=== PATIENT | female | born 1995 | race African-American/Black ===

== ENCOUNTER 2019-12-14 14:00 | Outpatient (RCR) | payer OTHER, SELFPAY ==
--- NOTE | 2019-12-15 09:02 | BH.SGPN.GN ---
Behaviors/Verbalizations/Mental Status: []Client alert and oriented, casual dress, hygiene tended to. Eye contact fair. Motor activity appropriate. Speech within normal limits. Affect congruent, mood anxious. Thoughts linear, logical, no signs of hallucinations or delusions. Reviewed client?s symptom tracker, pt denies current suicidal thoughts or intention to date. Client Response/Progress/Benefit: []Pt responded well to session AEB pt listening attentively to peers and sharing thoughts and feelings. Pt reported she has been stressed a lot this week because is on FMLA due to not being able to function at baseline. Pt stated she has been experiencing a lot of what if thoughts in regards to being fired or reprimanded when she returns to work. Pt open to feedback about trying to look at evidence against these thoughts. Seemed to benefit from support from peers and expressing thoughts and feelings. First day in group. Pt to continue IOP to increase healthy coping, challenge distorted thoughts and prevent decompensation. Narrative Note: []
--- NOTE | 2019-12-15 10:19 | BH.NA ---
Physical Data - Height/Weight Height: 1.75 m Weight:: 83.915 kg Weight in Pounds: 185.0 lbs Current Medication Compliance - Medication Compliance Do you take your medication as prescribed?: Yes Nutritional History - Appetite Nutritional Instructions:: If client shows signs of a swallowing problem, weight change of 10 pounds or more in the last month, or is on a diabetic diet, the physician will review and request a dietitian consult, as appropriate. All unintentional weight loss will be referred to the physician for decision on need for dietitian consult. Describe your appetite:: Good Functional Assessment - Sleep Pattern Describe any problems with sleeping: Client states she sleeps 7-8 hours per night. Sensory/Communication Assess - Communication Problems Do you have difficulty understanding what people are saying?: No What is your primary language?: B[place] Medical Problems/History - Musculoskeletal Conditions Musculoskeletal: Other (See comments) Comments:: fibromyalgia- diagnosed in the last few months. Surgical History - Surgical History Have you had any surgeries? If so, list type and date:: Yes - adenoids removed, ACL repair, wisdom teeth removed Substance Abuse - Substance Abuse Please describe substance abuse in the last 30 days:: Client states she drinks alcohol a couple of times a week, 1-2 drinks. Client denies tobacco or substance use. Client states she does not drink caffiene on a regular basis. Mental Status Summary - Mental Status Significant Findings/Observations on Appearance and Mood:: Assessment was complete via telehealth with video due to COVID19 pandemic. Client is alert and oriented x 4. Client is casually groomed. Client makes good eye contact as what can be assessed via video. Client makes logical associations. Client describes auditory hallucinations that are coupled with her obsessive thoughts as ways she could hurt herself or others. Client states they are things she knows she is capable of but does not want to do. Client states she does at times have passive thoughts of , like I would be better off not here but denies SI/plan. Suicide Assessment - Suicidal Ideation Are you currently or have you been suicidal in the past?: No - denies SI at this time, states she has passive thoughts at times Suicidal Intentional Rating Scale (SIRS): Suicidal thoughts (past) Physician Notification: If Active suicidal thoughts/Will not contract for safety is checked, contact physician and document in the Physician Notification section below. Past Psychiatric History - MH Treatment Hx Age of first mental health symptoms: Client states she told her PCP about obsessive thoughts and intrusive thoughts only about 4 months ago, but states her mental health symptoms have been going on much longer. Describe (age, circumstance, etc) any past hospitalizations: None. Current providers for mental health treatment (counselor, psychiatrist, casework manager, etc.): therapy through [facility] (virtual) and professor of psychology at [facility]. Fall Risk Assessment - Age Age: Less than 60 - Mental Status Mental Status: Willing & able to ask for assistance when needed - Physical Status Physical Status: No problems - Impairments Impairments: None - Elimination Elimination: Continent AND independent - Gait or Balance Gait or Balance: Walks independently - Hx of Falls History of falls in the past 6 months: No known history - Medications/Substances Psychotropics:: Antidepressants, Antipsychotics Medications/substances used within the past 24 hours or ordered to administer: 1-2 of the medications/substances listed above - Total Score Total Points:: 1 RN Summary of Impressions - Impressions Recommendations: Include psychiatric and medical issues, treatment planning recommendations, and discharge planning needs. Impressions: Psychiatric Issues: major depressive disorder, recurrent, severe, with psychotic features. Generalized anxiety disorder. OCD. - Level of Care How do the client's current symptoms and functional deficits support need for this level of care?: Client reports feeling symptoms of depression, anxiety, and OCD for a really long time but only admitting it to her PCP in the last few months because she couldn't handle it on my own anymore and knew I needed help. Client reports feelings of decreased energy, decreased motivation, anhedonia, ruminations, and intrusive thoughts. Client states the intrusive thoughts are obsessions about hurting herself or others. Client states the thoughts are things she knows she is capable of doing but does not want to do. Client states she has passive thoughts of like I would be better off not here but denies SI/plan. IOP will promote gains and prevent further decompensation while providing social support and skills training.
--- NOTE | 2019-12-15 12:01 | BH.MDN_ITS ---
Multi-Disciplinary Note - Note 45-min Individual Time Started:: 13:00 Date: 12/14/19 Purpose of session/treatment goals addressed:: Purpose of session was to build rapport, gather background information, and start process of identifying treatment goals for IOP. Eye Contact:: Good Motor Activity:: Appropriate Appearance:: Casual Speech:: Appropriate Mood:: Anxious, Dysthymic Affect:: Congruent Thoughts:: Linear, Logical, No evidence of hallucinations/delusions noted Staff Interventions:: Therapist used open ended questions to elicit current symptoms and stressors. Actively listened and validated emotions to build rapport. worked collaboratiely with pt to start identifying treatment goals for IOP. Client Response:: Pt responded well to session AEB pt openly sharing thoughts and feelings. Pt stated she sought additional mental health help when she recognized she was not functioning at her best at work and home. Pt stated she was not completing some of her work and was making little mistakes with documentation. Pt stated her intrusive thought of worrying her neices are bieng hurt impacts ability to concentrate. Pt reported she started to decline about two months ago. Pt endorsed low energy, no motivation, anhedonia, oversleeping, worthlessness, restlessness, and racing thoughts. Pt reported she wants to learn healthy coping skills to manage her depressiona and intrusive thoughts. Pt stated her current coping skill is avoidance which she recognizes doesn't work. Pt willing to read material e-mailed to pt about intrusive thoughts. Risks/Concerns:: denies current suicidal thoughts, ideation, and plan. Progress Toward Goals/Plan:: No progress noted given it is first week in IOP program. Pt to continue IOP to increse helahty coping, decrease anxious symptoms , improve daily functioning so pt can return work and prevent decompensation. Time Stopped:: 13:45
--- NOTE | 2019-12-15 12:03 | PCM.BH.PSYEV ---
Psychiatric Evaluation - Initial Evaluation Initial Evaluation: History of Present Illness: [] Patient is a 30-year-old single -[place] female who was referred to the [facility] behavioral health IOP program by her psychiatrist due to her increasing symptoms of depression and anxiety and her inability to function at work due to these worsening symptoms. Patient states that her quality of work as really decreased due to her worsening mental health symptoms. She is currently on FMLA due to being unable to function at work. She lives with her boyfriend of 3 years by themselves. 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 The patient's biggest stress currently is not being able to work. She endorses feeling a depressed mood and sadness. She endorses hopelessness and worthlessness. She lacks motivation and has low energy. She is enjoying some video she sees on [employer] but not much enjoyment in anything else lately. Her appetite is okay overall. Her sleep is about 7 to 8 hours a night. She has low energy during the day and her concentration is very decreased. She feels guilty and she admits to passive thoughts that she would not care if she . In addition she has passive, fleeting suicidal ideation but denies any active suicidal ideation and denies having any plan for suicide. She denies homicidal ideation. She has had some auditory hallucinations for the past few weeks but these have decreased since she started Seroquel 1 week ago. She is at times hears a cell phone ringing when it is not or she hears voices coming from the television when the television is off. She also feels that she is a little paranoid that the people that were closely with her think negatively are saying negative things about her. She denies any other hallucinations or delusions. She denies any symptoms of juan david ever. She also has a history of intrusive, obsessive thoughts. These thoughts are of hurting herself and others at times but they are very ego dystonic and she would never act on them. She also has bizarre thoughts like if she walks by a razor blade that maybe she should swallow the razor blade. She describes her self as a worrier by nature. She is having panic attacks about once a month. She denies having any rituals with her obsessions. She denies any history of self-harm, eating disorder, trauma or PTSD currently. Current Psychiatric Medications: [] Prozac 40 mg p.o. daily (x4 weeks, on this dose for 1 week); Seroquel 100 mg p.o. nightly (x1 week), 50 mg started 2 weeks ago. Past Psychiatric History: [] No psych admits ever. No suicide attempts. She currently has an outpatient counselor and a psych med provider. She first took meds for psychiatric reasons at age 23 about 1 year ago. She had counseling in college and she has her current counselor that she sees every 2 weeks for about 3 months and this has been helpful. She has been on a few meds in the past besides what she is on now but she does not remember their names. Substance Use History: [] She is a non-smoker of cigarettes. Denies any marijuana use. She used to use marijuana rarely in the past but has not used any since several years ago. She drinks 1-2 beers a few nights a week but has never had any blackouts or has ever had a problem with alcohol. She denies any other drug use whatsoever. No rehab ever. Allergies: [] No known allergies Medications: [] She is on the psych meds mentioned in the below the present illness and she is also on topiramate 50 mg nightly for migraine headaches (on this for several months). She denies any side effects from this medication. Past Medical History: [] Migraine headaches, knee ACL surgery, tonsil out and adenoidectomy, wisdom teeth extraction. She is a 0 para 0 female with regular menstrual periods. She uses condoms for control. Family Psychiatric History: [] Mother is healthy and 55 years old and her father is 55 6 years old and healthy. No family history of mental illness or mental illness issues known. She had a paternal aunt with alcoholism but no other substance problems in the family. No completed suicides in the family. Personal/Social History: [] Patient was born and raised in [place] and moved to [place] when she went to [employer] for college. She describes her childhood as pleasant. Her parents were and are and they were both loving. The patient is a middle child and has 2 older sisters, one younger sister and 1 younger brother. She gets along with her siblings but is not real close to them. She denies any verbal, physical or sexual abuse ever. School was good for her growing up and she graduated high school. She went to college at [employer] and got a BS in forensic psychology and is currently working on a masters. She has never had any serious boyfriends except for maybe the current boyfriend of 3 years who she lives with. There of note has never been abuse from her boyfriend. Legal History: [] No arrests. No DUIs. 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 Review of Systems: [] Negative except as noted in present illness. Vital Signs: [] We will review in nurse's notes. Mental Status Examination: [] Patient is seen by telehealth and is not wearing a mask. She appears normal for stated age and is casually dressed and groomed with good hygiene. She has no psychomotor agitation or retardation. She is cooperative and pleasant during the interview. Eye contact is good and speech is normal rate and rhythm and fluent with no pressure. Mood is depressed and affect is constricted to normal. Thought process is goal-directed and organized. Thought content: There is evidence of fleeting passive suicidal ideation and passive thoughts of . No evidence of active suicidal ideation or homicidal ideation. She does say she had auditory hallucinations with voices coming from the TV but these have improved a lot since starting Seroquel several weeks ago. Reality testing is intact. Intelligence is above average. Judgment is intact. Insight: Some present. Impulsivity: Low to moderate. Diagnoses: [] [place] I: [] Major depressive disorder, recurrent, severe, with psychotic features; generalized anxiety disorder; OCD [place] II: [] Deferred [place] III: [] Migraine headaches [place] IV: [] Work and job issues. Plan: [] Patient will start the IOP program at [facility] as the structure, support, education, individual and group therapy will hopefully prevent worsening of the patient's symptoms that might require hospitalization. She felt safe during the interview and if at any time she does not feel safe she will let us know or go to the emergency room. The risks, options, possible side effects and complications were discussed of the medications were discussed with the patient and she understands and accepts these. No medication changes were made at this time as her doses of Seroquel and Prozac were changed within a week ago. She will continue to follow-up with her outpatient psychiatric and medical providers.
--- NOTE | 2019-12-15 12:15 | BH.PSY.EVA_ITS ---
Initial Treatment Plan - Patient Information Visit Information: ADMISSION DATE: EXPECTED LOS: 4-6 weeks - Problems/Symptoms Problem #1:: Depression Symptom:: sadness, hopelessness, worthlessness, anhedonia, decreased concentrat ion, passive suicidal ideation, passive thoughts of Problem #2:: Anxiety Symptom:: Rumination, intrusive obsessive thoughts, panic attacks
--- NOTE | 2019-12-16 09:05 | BH.SGPN.GN ---
This psychotherapy group was provided via telehealth using two-way, real-time interactive telecommunication technology between the patients and the provider. The interactive telecommunication technology included audio and video. The patient was offered telemedicine as an option for care delivery during the COVID-19 pandemic and consented to this option. Patient location: [place] Provider located at [facility] Behaviors/Verbalizations/Mental Status: []Client alert and oriented, casual dress, hygiene tended to. Eye contact fair. Motor activity appropriate. Speech within normal limits. Affect constricted, mood anxious and dysthymic. Thoughts linear, logical, no signs of hallucinations or delusions. Reviewed client?s symptom tracker, pt denies current suicidal thoughts or intention to date. Client Response/Progress/Benefit: []Client responded well to session, attentive and providing supportive statements. Client reports feeling low and anxious this morning. Client shared she is struggling with managing negative thinking related to being off of work. Client stated she has not yet told her family that client is off work to improve her mental health, but client plans to do this tonight. Client shared belief her family will respond well, but client is still anxious. Client stated she has been practicing grounding and positive self-talk to manage her anxiety. Appeared to benefit from connecting with group and reframing distortions in the moment. Will continue IOP tx to prevent decompensation, improve work related functioning, and reduce negative thinking. Narrative Note: []
--- NOTE | 2019-12-16 10:20 | BH.SGPN.GN ---
This psychotherapy group was provided via telehealth using two-way, real-time interactive telecommunication technology between the patients and the provider. The interactive telecommunication technology included audio and video. The patient was offered telemedicine as an option for care delivery during the COVID-19 pandemic and consented to this option. Patient location: [place] Provider located at [facility] Behaviors/Verbalizations/Mental Status: []Client alert and oriented, casually dressed. Eye contact good. Motor activity appropriate. Speech within normal limits. Affect congruent, mood euthymic. Thoughts linear, logical, no signs of hallucinations or delusions. Client Response/Progress/Benefit: []Client responded well to group and actively engaged throughout the session. Client provided input as the group brainstormed positive and negative aspects of stress on physical and mental health. Group identified positive stress as: motivation, reflection of personal growth, learning to apply new coping skills, increased confidence, increased self-awareness, and maintaining personal goals. Client identified the stress in her jar included: finances, gradschool, mental health, work, chores around the house, and family. Progress noted as client increased self-awareness and learned the importance of healthy stress. Client will continue IOP tx as client continues to struggle with mood instability and can improve self-confidence. Narrative Note: []
--- NOTE | 2019-12-16 11:23 | BH.SGPN.GN ---
This psychotherapy group was provided via telehealth using two-way, real-time interactive telecommunication technology between the patients and the provider. The interactive telecommunication technology included audio and video. The patient was offered telemedicine as an option for care delivery during the COVID-19 pandemic and consented to this option. Patient location: [place] Provider located at [facility] Behaviors/Verbalizations/Mental Status: []Client alert and oriented, casually dressed and groomed. Eye contact good. Motor activity appropriate. Speech within normal limits. Affect congruent, mood depressed and anxious. Thoughts linear, logical, no signs of hallucinations or delusions. Client Response/Progress/Benefit: []Client engaged participant in session AEB client listening attentively to others, taking notes during session, and providing input throughout. Client actively listening during discussion about the 4 A's of managing stress. Noted that she has struggled with acceptance in the past, specifically regarding her mental health and unrealistic expectations of herself. Identified she wants to work on managing the stressor of a situation occurring between she and a professor earlier this year, shared that this will help to improve her concentration in class and reduce anxiety levels. Discussed that by adapting her mindset and accepting that she has done everything within her power to best address the stressor, she will be able to focus on other things and spend less time ruminating on what it outside her control. Client seemed to benefit from increased awareness of the impact of stress on mental health and increasing repertoire of stress management strategies. Progress noted in increased insight and participation. Will continue IOP tx to promote use of healthy coping skills, improve mood management, as well as prevent decompensation. Narrative Note: []
--- NOTE | 2019-12-17 09:00 | BH.SGPN.GN ---
This psychotherapy group was provided via telehealth using two-way, real-time interactive telecommunication technology between the patients and the provider. The interactive telecommunication technology included audio and video. The patient was offered telemedicine as an option for care delivery during the COVID-19 pandemic and consented to this option. Patient location: [place] Provider located at [facility] Behaviors/Verbalizations/Mental Status: []Client alert and oriented, casually dressed. Eye contact good. Motor activity appropriate. Speech within normal limits. Affect congruent, mood low. Thoughts linear, logical, no signs of hallucinations or delusions. Reviewed client?s symptom tracker, risk for suicidal ideation below client?s baseline. No plan or intent plan, or intent as of 12/17/19. Client Response/Progress/Benefit: []Client responded well to session and engaged and provided feedback to other group members. Client?s goal was to talk to her family about her involvement in IOP and being off work. Client stated she was unable to speak to supports because of feeling exhausted after group. Client felt guilty that she avoided the conversation until it was too late in the evening and feels she is ?taking 2 steps forward, 4 steps back.? Client stated she felt ?useless from not working.? The group helped client identify her strengths and client identified three personal strengths being: recognizing the importance of taking time off, waking up everyday on time to participate in IOP, and remaining positive through the stressors. Progress noted as client increased self-awareness. Client will continue IOP to prevent decompensation and decrease depressive symptoms. Narrative Note: []
--- NOTE | 2019-12-17 10:10 | BH.SGPN.GN ---
This psychotherapy group was provided via telehealth using two-way, real-time interactive telecommunication technology between the patients and the provider. The interactive telecommunication technology included audio and video. The patient was offered telemedicine as an option for care delivery during the COVID-19 pandemic and consented to this option. Patient location: [place] Provider located at [facility] Behaviors/Verbalizations/Mental Status: []Client alert and oriented, casual dress, hygiene tended to. Eye contact fair. Motor activity appropriate. Speech within normal limits. Affect congruent, mood anxious. Thoughts linear, logical, no signs of hallucinations or delusions. Client Response/Progress/Benefit: []Client responded well to session, attentive throughout. Listening and participating throughout group discussion defining conflict and the differences between internal and external conflict. Client related the group?s quote and stated ?war is the opposite of peace, and in order to have peace? you must be creative.? Group reported the benefits of addressing conflict as well as identified and discussed consequences of not addressing conflict. Client reported the consequences she encounters by not addressing conflict would be increased anxiety and crisis. Client attentive and contributing during psychoeducation of the different conflict resolution styles. Client reports her conflict styles are avoiding and accommodating because client does not like to hurt others? feelings. Client benefited from group as she learned new conflict resolution styles and the benefits. Client will continue IOP to decrease depressive symptoms and prevent decompensation. Narrative Note: []
--- NOTE | 2019-12-17 11:10 | BH.SGPN.GN ---
This psychotherapy group was provided via telehealth using two-way, real-time interactive telecommunication technology between the patients and the provider.?The interactive telecommunication technology included audio and video.? ?The patient was offered telemedicine as an option for care delivery during the COVID-19 pandemic and consented to this option. ?Patient location: [place] ?Provider located at [facility] Behaviors/Verbalizations/Mental Status: []Client alert and oriented, neatly dressed and groomed. Eye contact good. Motor activity appropriate. Speech within normal limits. Affect congruent to topics being discussed, mood anxious and dysthymic. Thoughts linear, logical, no signs of hallucinations or delusions. Client Response/Progress/Benefit: []Client engaged in session AEB listening attentively to others and providing input throughout. Client further processed her conflict resolution style and connects most with the avoiding and accommodating styles. Client reports she avoids internal conflict and accommodates when faced with external conflict. Client shared this leads to client not taking care of her needs which increases depression and anxiety. Client did well to participate during the activity in which participants were challenged to eliminate various items through group consensus. Client contributed to discussion of the barriers that occurred during the activity as well as the conflict resolution strategies. Client identified wanting to work on not jumping to conclusions and assuming ?that others won?t value my opinion? to better manage conflict. Progress noted in client?s high engagement in group sessions. Will continue IOP tx to prevent decompensation, reduce guilt and ruminations, and improve daily functioning. Narrative Note: []
--- NOTE | 2019-12-20 09:05 | BH.SGPN.GN ---
This psychotherapy group was provided via telehealth using two-way, real-time interactive telecommunication technology between the patients and the provider. The interactive telecommunication technology included audio and video. The patient was offered telemedicine as an option for care delivery during the COVID-19 pandemic and consented to this option. Patient location: [place] Provider located at [facility] Behaviors/Verbalizations/Mental Status: []Client alert and oriented, casually dressed. Eye contact good. Motor activity appropriate. Speech within normal limits. Affect congruent, mood dysthymic. Thoughts linear, logical, no signs of hallucinations or delusions. Reviewed client?s symptom tracker, risk for suicidal ideation below client?s baseline. No plan or intent plan, or intent as of 12/20/19. Client Response/Progress/Benefit: []Client responded well to group as she actively participated and engaged throughout the session. Client?s goal was to have self-compassion for taking time away from work as well as tell her family about being involved in IOP. Client shared that she was able to have a healthy conversation with her parents about IOP as they were supportive and positive about her decision. Client shared she did not communicate with her sisters yet, but plans to within the week. Client stated feeling increased confidence and less tense in result of the conversation with her parents. Client practiced communication skills, reaching out to support, and reframing negative thoughts. Client shared feeling positive, tired, hopeful, and less anxious today. Progress noted as client opened up to support about stressors and will continue IOP to decrease depressive symptoms, and improve daily functioning. Narrative Note: []
--- NOTE | 2019-12-20 10:15 | BH.SGPN.GN ---
This psychotherapy group was provided via telehealth using two-way, real-time interactive telecommunication technology between the patients and the provider. The interactive telecommunication technology included audio and video. The patient was offered telemedicine as an option for care delivery during the COVID-19 pandemic and consented to this option. Patient location: [place] Provider located at [facility] Behaviors/Verbalizations/Mental Status: []Client alert and oriented, casually dressed. Eye contact good. Motor activity appropriate. Speech within normal limits. Affect congruent, mood anxious. Thoughts linear, logical, no signs of hallucinations or delusions. Client Response/Progress/Benefit: []Client engaged throughout session AEB providing input to discussion and providing supportive statements. Connected with discussion on how coping with external crises by using unhealthy coping skills could result in a personal crisis. Group reported that it is important to have awareness of warning signs which can prevent reaching crisis point. Group identified warning signs for crisis and client completed the personal warning signs worksheet. Client identified personal crisis warning signs to include: lack of energy, increased sleep, and increased negative self-talk. Benefited by increasing awareness of crisis and personal warning signs. Progress noted AEB client?s engagement during group sessions. Will continue IOP tx to prevent decompensation, increase application of healthy coping skills, and improve mood stability. Narrative Note: []
--- NOTE | 2019-12-20 11:15 | BH.SGPN.GN ---
This psychotherapy group was provided via telehealth using two-way, real-time interactive telecommunication technology between the patients and the provider. The interactive telecommunication technology included audio and video. The patient was offered telemedicine as an option for care delivery during the COVID-19 pandemic and consented to this option. Patient location: [place] Provider located at [facility] Behaviors/Verbalizations/Mental Status: []Client alert and oriented, casually dressed, hygiene appeared to be tended to. Eye contact good. Motor activity appropriate. Speech within normal limits. Affect congruent, mood euthymic. Thoughts linear, logical, no signs of hallucinations or delusions Client Response/Progress/Benefit: []Client responded well to session as evidenced by client listening attentively to others and providing strategies during discussion. Client used the warning signs: increased sleep, decreased energy, and increased negative self-talk to create her crisis plan. Client created a crisis action plan to help client better manage warning signs for crisis. Client shared for the warning sign of sleep she will go to bed by 11pm every night, set an alarm to wake up at the same time every day, and cut out mid-day naps. Client appeared to benefit from creating a crisis action plan and increasing self-awareness. Client to continue IOP tx to improve daily functioning, increase healthy coping, and prevent decompensation. Narrative Note: []
--- NOTE | 2019-12-22 09:05 | BH.SGPN.GN ---
This psychotherapy group was provided via telehealth using two-way, real-time interactive telecommunication technology between the patients and the provider. The interactive telecommunication technology included audio and video. The patient was offered telemedicine as an option for care delivery during the COVID-19 pandemic and consented to this option. Patient location: [place] Provider located at [facility] Behaviors/Verbalizations/Mental Status: [] Client alert and oriented, casually dressed and groomed. Eye contact good. Motor activity appropriate. Speech within normal limits. Affect congruent, mood anxious. Thoughts linear, logical, no signs of hallucinations or delusions. Reviewed client?s symptom tracker, no risk for suicidal ideation, plan, or intent as of 12/22/19. Client Response/Progress/Benefit: [] Pt responded well to session, actively listening throughout and openly processed with group. Pt reports feeling anxious this morning. Indicated this is due to recently running into an old friend whom she had set boundaries with as the relationship had become toxic. Discussed struggling with guilt about ending the friendship and wondering if she should reach back out to this individual. Pt receptive of feedback and support provided by the group. Able to complete a cost/benefit analysis of reaching out. Client indicates planning to reflect further on this before making any decisions. Went on to identify current positives as reaching out to healthy supports when needed and continuing to actively practice thought challenging skills throughout the day. Pt appeared to benefit from connecting with peers and brainstorming strategies for addressing current stressors. Progress noted in pt self-identified increased use of thought challenging and self-compassion, though continues to struggle with distortions reinforcing anxiety and depression. Pt recommended continued IOP tx to further improve emotion regulation, thought challenging, and self-care skills, as well as maintain stability. Narrative Note: []
--- NOTE | 2019-12-22 16:22 | BH.MDN ---
Multi-Disciplinary Note - Note 45-min Individual Time Started:: 11:20 Date: 12/22/19 Purpose of session/treatment goals addressed:: Purpose of session was to assess pt's current symptoms and stressors. Reviewed skills that help manage her anxiety, problem solve current stressor, and identify goal for the week. Eye Contact:: Good Motor Activity:: Appropriate Appearance:: Casual Speech:: Appropriate Mood:: Anxious Affect:: Congruent Thoughts:: Linear, Logical, No evidence of hallucinations/delusions noted Staff Interventions:: Therapist used open ended questions to elicit pt's current symptoms and stressors. Elicited skills that currently help manage anxiety and hallucinations. Encouraged pt to read the material provided about intrusive thoughts. Processed friendship stressor. Collaborated with pt to identify goal for the week. Client Response:: Pt stated she has been struggling with having guilt because she is off work. Pt reported she feels like she isn't contributing which increases her guilt. With assitance from therapist pt able to reframe distorted thought. Pt recognizes importance of taking time off to help herself. Ptstated she did not complete the homework of reading about intrusive thoughts. Pt did not provide a reason as to why she didn't do her homework. Pt stated using reality grounding is what helps her the most with anxiety and psychosis. Pt reported she using the 5 senses helps put her back into the here and now. Pt stated she is better at using reality grounding for visual hallucinations, struggles with managing auditory hallucinations at times. Pt reported she did share with her family that she is going to counseling. Pt stated this was a big step for her because her family doesn't usually talk about mental health or about needing help from others. Pt reported she is happy she was honest with them becasue they are all being very supportive. Pt processed stressor about what to do with a friendship. Through discussion pt recognizes she wants to make one contact and if things work out thats great, but if not at least she knows she tried. Pt collaborated with therapist to identify a goal for the week. Pt stated she believes she needs a routine/schedule since she is not at work. Pt reported she thinks a schedule will help because it will motivate her to do more around the house. Risks/Concerns:: denies suicidal ideation, plan or intention to date. future focused. Progress Toward Goals/Plan:: Progress noted with pt having increased awareness of how her behavior can increase depressive symptoms. Increased insight and awareness of triggers. Pt continues to struggle with harm intrusive thoughts. Pt's progress could be hindered if pt doesn't do the homework outside treatment environment. Pt to continue IOP to increase consistent use of healthy coping, decrease anxiety and prevent decompensation. Time Stopped:: 12:09
--- NOTE | 2019-12-24 09:00 | BH.SGPN.GN ---
Behaviors/Verbalizations/Mental Status: [] Eye contact is good. Motor activity is appropriate. Appearance is disheveled. Speech is Appropriate. Mood is depressed. Affect is flat. Thoughts are linear and logical. No evidence of psychosis. Reviewed daily check in sheet and no reports of suicidal ideations or intent Client Response/Progress/Benefit: [] Pt was an active participant in group discussion. Provided appropriate feedback to peers. Shared with the group that she is taking group suggestions and attempting to be more useful at home in her eyes. Helped out her BF with patio and doing small things around the house. More engaged with support. Improved mood. She discussed running into an old friend whom was toxic. She discussed how she was assertive in the conversation and that the friend responded well. She hopes they can work on their relationship. Progress noted per pt report. Will continue in IOP to maintain safety, prevent decompensation, and improve functioning to return to work. Narrative Note: [] This psychotherapy group was provided via telehealth using two-way, real-time interactive telecommunication technology between the patients and the provider.?The interactive telecommunication technology included audio and video.? ?The patient was offered telemedicine as an option for care delivery during the COVID-19 pandemic and consented to this option. ?Patient location: [place] ?Provider located at [facility]
--- NOTE | 2019-12-24 10:20 | BH.SGPN.GN ---
This psychotherapy group was provided via telehealth using two-way, real-time interactive telecommunication technology between the patients and the provider.?The interactive telecommunication technology included audio and video.? ?The patient was offered telemedicine as an option for care delivery during the COVID-19 pandemic and consented to this option. ?Patient location: [place] ?Provider located at [facility] Behaviors/Verbalizations/Mental Status: []Client alert and oriented, neatly dressed and groomed. Eye contact good. Motor activity appropriate. Speech within normal limits. Affect congruent, mood euthymic and anxious. Thoughts linear, logical, no signs of hallucinations or delusions. Client Response/Progress/Benefit: []Client was an active participant AEB client providing input throughout discussion and attentively listening to peers. Client connected with how having a negative perspective can keep you stuck, prevent a person from getting help, and cause worsening mental health symptoms. Client stated feeling cognitive dissonance about getting mental health tx, because client was raised with the perspective that mental health was negative. Client worked with group to identify how negative perspective can impact mental health which included: self-fulfilling prophecy, worse mood, and negative thinking.?Client helped group discuss ways a positive perspective can impact mental health such as: seeking treatment, challenging distortions, and improved mood. Client appeared to benefit from increasing understanding of mental health benefits of a positive perspective and potential consequences to progress when perspective is negative. Client will continue IOP tx to reduce anxiety and depressive symptoms while increasing ability to function at her baseline. Narrative Note: []
--- NOTE | 2019-12-24 11:20 | BH.SGPN.GN ---
Behaviors/Verbalizations/Mental Status: [] Eye contact is good. Motor activity is appropriate. Appearance is neat. Speech is Appropriate. Mood is anxious. Affect is congruent. Thoughts are linear and logical. No evidence of psychosis. Client Response/Progress/Benefit: [] Pt was an active participant in group discussion. Attentive during psycho-education. Active participant in group discussion on the impact of perspective on how we view ourselves. Pt worked with the group to develop a working definition of the term strengths and the importance of recognizing one's strengths. Pt was given a worksheet and was asked to [place] at least 3 strengths which she completed. Group then worked together to identify strategies to remind themselves of their strengths which included; picking one strength per day, asking support to tell us one of our strengths, track our accomplishments, daily affirmations, and creating a gratitude journal. Progress noted. Benefited from increased awareness of the role of perspective and strengths in daily mental health wellness. Will continue in IOP to maintain safety, prevent decompensation, and improve functioning to return to work. Narrative Note: [] This psychotherapy group was provided via telehealth using two-way, real-time interactive telecommunication technology between the patients and the provider.?The interactive telecommunication technology included audio and video.? ?The patient was offered telemedicine as an option for care delivery during the COVID-19 pandemic and consented to this option. ?Patient location: [place] ?Provider located at [facility]
--- NOTE | 2019-12-28 09:04 | BH.SGPN.GN ---
This psychotherapy group was provided via telehealth using two-way, real-time interactive telecommunication technology between the patients and the provider.?The interactive telecommunication technology included audio and video.? ?The patient was offered telemedicine as an option for care delivery during the COVID-19 pandemic and consented to this option. ?Patient location: [place] ?Provider located at [facility] Behaviors/Verbalizations/Mental Status: [] Client alert and oriented, casually dressed and groomed. Eye contact good. Motor activity appropriate. Speech within normal limits. Affect congruent, mood euthymic. Thoughts linear, logical, no signs of hallucinations or delusions. Reviewed client?s symptom tracker, no risk for suicidal ideation, plan, or intent as of 12/28/19. Client Response/Progress/Benefit: []Pt receptive to session, actively listening and willing to process with group. Pt reports feeling ?hesitant but positive this morning which she attributed to having a positive weekend but struggling some yesterday. Noted using opposite action to prevent from giving into urges to isolate and avoid completing tasks yesterday and discussed plans to do so again today if she finds herself struggling with motivation. Pt did well to identify current mental health wins as: advocating for her own needs and boundaries to be respected when communicating with an old support person, as well as continuing to make progress on her application of thought challenging skills. Reports often struggling with unrealistic expectations of self. Pt appeared to benefit from group support and structure. Progress noted in self-report of improved communication and reduced anxiety, though continues to struggle with consistency. Pt recommended continued IOP tx to further promote healthy change behaviors, improve emotion regulation, as well as prevent decompensation. Narrative Note: []
--- NOTE | 2019-12-28 10:13 | BH.SGPN.GN ---
This psychotherapy group was provided via telehealth using two-way, real-time interactive telecommunication technology between the patients and the provider.?The interactive telecommunication technology included audio and video.? ?The patient was offered telemedicine as an option for care delivery during the COVID-19 pandemic and consented to this option. ?Patient location: [place] ?Provider located at [facility] Behaviors/Verbalizations/Mental Status: []Client alert and oriented, casual dress, hygiene tended to. Eye contact good. Motor activity appropriate. Speech within normal limits. Affect congruent to topics discussed, mood euthymic. Thoughts linear, logical, no signs of hallucinations or delusions. Client Response/Progress/Benefit: []Client responded well to session, attentive and occasionally contributing to discussion. Client worked cooperatively with the group to identify factors that contributed to how we define ourselves which included: upbringing, societal expectations, culture/environment, how well we function, failures, trauma, and how others view us. Client reported she has experienced the impacts of mental health stigma. Shared examples such as mental health meaning someone is ?broken, a bad parent, and violent.? Client worked with group to identify and discuss social and perceived stigma. Client seemed to benefit from increased awareness of how mental health stigma can impact progress and self-worth. Client to continue IOP tx to reduce intensity of anxiety, reduce negative thinking, and improve daily functioning. Narrative Note: []
--- NOTE | 2019-12-28 11:20 | BH.SGPN.GN ---
This psychotherapy group was provided via telehealth using two-way, real-time interactive telecommunication technology between the patients and the provider. The interactive telecommunication technology included audio and video. The patient was offered telemedicine as an option for care delivery during the COVID-19 pandemic and consented to this option. Patient location: [place] Provider located at [facility] Behaviors/Verbalizations/Mental Status: []Client alert and oriented, casually dressed, hygiene appeared to be tended to. Eye contact fair. Motor activity appropriate. Speech within normal limits. Affect congruent, mood euthymic. Thoughts linear, logical, no signs of hallucinations or delusions. Client Response/Progress/Benefit: []Client responded well to session AEB listening and taking notes, as well as providing input at times during session. Engaged in activity about facts and statistics of mental illness. Group connected with the mental health statistics, recognizing the prevalence of mental health. Group brainstormed strategies to combat social and perceived stigma which included: educating others, no longer using negative language about mental illness, being open about mental health, self-compassion and not reinforcing stigma with behaviors or labels. Client stated she would benefit from working on engaging in self-compassion in order to reduce perceived mental health stigma. Client reported she often has high expectations of self which leads client to not be very forgiving to herself. Recognizes the impact this can have on her mental health. Appeared to benefit from increasing awareness of strategies to combat stigma. Will continue IOP tx to increase healthy coping, challenge distorted thoughts, and prevent decompensation. Narrative Note: []
--- NOTE | 2019-12-30 10:20 | BH.SGPN.GN ---
This psychotherapy group was provided via telehealth using two-way, real-time interactive telecommunication technology between the patients and the provider. The interactive telecommunication technology included audio and video. The patient was offered telemedicine as an option for care delivery during the COVID-19 pandemic and consented to this option. Patient location: [place] Provider located at [facility] Behaviors/Verbalizations/Mental Status: []Client alert and oriented, casually dressed and appropriately groomed. Eye contact fair. Motor activity appropriate. Speech within normal limits. Affect congruent, mood euthymic. Thoughts linear, logical, no signs of hallucinations or delusions. Client Response/Progress/Benefit: []Client appeared engaged during session AEB client providing input throughout discussion and listened attentively to others. Client worked with peers on defining goals and brainstormed with the group the benefits of goal setting. Client reported successfully completing small goals can give you a sense of accomplishment and increase motivation. Client helped group discuss the barriers that keep people from either setting goals are following through with goals. Client stated when she strives for perfection she is more likely to give up. Client able to provide feedback during psychoeducation on SMART goals. Client appeared to benefit from learning the mental health benefits of setting goals that are SMART. Will continue IOP tx decrease anxious symptoms, continue use of healthy coping skills, and prevent decompensation. Narrative Note: []
--- NOTE | 2019-12-30 11:15 | BH.SGPN.GN ---
This psychotherapy group was provided via telehealth using two-way, real-time interactive telecommunication technology between the patients and the provider.?The interactive telecommunication technology included audio and video.? ?The patient was offered telemedicine as an option for care delivery during the COVID-19 pandemic and consented to this option. ?Patient location: [place] ?Provider located at [facility] Behaviors/Verbalizations/Mental Status: []Eye contact is good. Motor activity is appropriate. Appearance is neat. Speech is Appropriate. Mood is anxious, and euthymic. Affect is congruent. Thoughts are linear and logical. No evidence of psychosis Client Response/Progress/Benefit: []Client was engaged during discussion, did well to complete activity and process with the group. Client was willing to complete the worksheet in which she was challenged to develop a personal SMART goal. Client chose the goal; dance or be active with her dog for 30 minutes 2-3x in the next week. When asked why this goal was important and beneficial to client's mental health, she stated this will help client because dancing reduces stress and it will make client?s dog happy. Client identified her barriers which included: lack of motivation, getting too dark outside at night, and making excuses. Client receptive to identifying solutions for these barriers and willing to begin working on this goal. Benefited from this group by developing a short-term SMART goal related to mental health. Will continue IOP tx to promote use of healthy coping skills, improve daily functioning, and reduce negative thinking. Narrative Note: []
--- NOTE | 2019-12-30 14:38 | BH.MDN ---
Multi-Disciplinary Note - Note 60-min Individual Time Started:: 09:08 Date: 12/30/19 Purpose of session/treatment goals addressed:: Purpose of session was to assess pt's current symptoms and stressors. Also focused on self-care, behavioral activation, and setting weekly goal. Eye Contact:: Good Motor Activity:: Appropriate Appearance:: Casual Speech:: Appropriate Mood:: Euthymic Affect:: Full Thoughts:: Linear, Logical, No evidence of hallucinations/delusions noted Staff Interventions:: Therapist used open ended questions to elicit pt's current symptoms and stressors. Therapist reviewed homework from last session. Elicited pt's thoughts about areas of progress and areas of continued struggle. Problem solved with pt on her biggest concern of sleep. Used DBT interventions to edcuate pt on muñoz mind. Collaborated with pt to develop goal for the week. Client Response:: Pt stated she was able to complete homework of starting to create a schedule/routine. Pt reported she has been able to get her to-do list done every day. Pt stated she is feeling much more accmoplished. Pt reported improved depressive symptoms and increased motivation. Pt identified biggest concern is trouble winding down at night which messes up her sleep scheudle. After discussion pt recognized she is taking her nighttime medications too late. Pt connected with muñoz mind because she knows she tends to overuse logic to help her make decisions and combat negative thoughts. Pt stated she does struggle when her order of operations is messed up. Pt reported she would like to work on being in the moment. Pt stated she will practice calming and grounding tools to allow herself to experience current moment versus worrying about what's next. Risks/Concerns:: denies suicidal ideation, plan or intention to date. Progress Toward Goals/Plan:: Progress noted with pt reporting improved mood, increased motivation and feeling more accomplished. Pt continues to struggle with intrusive harm thoughts and hallucinations. Pt utilizes reality grounding which is helping with hallucinations. Pt is to continue IOP to decrease intrusive thoughts, continue to use healthy coping and prevent decompensation. Time Stopped:: 10:03
--- NOTE | 2019-12-31 09:00 | BH.SGPN.GN ---
This psychotherapy group was provided via telehealth using two-way, real-time interactive telecommunication technology between the patients and the provider. The interactive telecommunication technology included audio and video. The patient was offered telemedicine as an option for care delivery during the COVID-19 pandemic and consented to this option. Patient location: [place] Provider located at [facility] Behaviors/Verbalizations/Mental Status: []Client alert and oriented, casually dressed. Eye contact good. Motor activity appropriate. Speech within normal limits. Affect unable to gather due to wearing a mask for COVID-19 protocol, mood anxious. Thoughts linear, logical, no signs of hallucinations or delusions. Reviewed client?s symptom tracker, no risk or plan for suicide ideation as of 12/31/19. Client Response/Progress/Benefit: []Client responded well to session, engaged and participated throughout discussion. Client shared her goal was to be productive and active by using opposite action. 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 Client shared her stressor has been ruminations on the future as her boyfriend sends pictures of houses and talks about engagement. Client states the skills that help her remain focused on the present instead of the future has been reality grounding, using logical thinking, mindfulness and grounding, and communication. Client benefited from group as group members could relate and provide positive and encouraging feedback. Client will continue IOP to prevent decompensation and promote the use of healthy coping skills. Narrative Note: []
--- NOTE | 2019-12-31 10:15 | BH.SGPN.GN ---
This psychotherapy group was provided via telehealth using two-way, real-time interactive telecommunication technology between the patients and the provider. The interactive telecommunication technology included audio and video. The patient was offered telemedicine as an option for care delivery during the COVID-19 pandemic and consented to this option. Patient location: [place] Provider located at [facility] Behaviors/Verbalizations/Mental Status: []Client alert and oriented, casually dressed and appropriately groomed. Eye contact fair. Motor activity appropriate. Speech within normal limits. Affect congruent, mood euthymic. Thoughts linear, logical, no signs of hallucinations or delusions. Client Response/Progress/Benefit: []Client engaged participant AEB client providing input throughout session and listened attentively to peers. During discussion of quote client stated she doesn?t believe we grow by chance she believes we have personal growth based on how we react to situations. Client worked with group to identify forces that can impact growth and overall mental health. Client stated supports can impact the way we grow. Client seemed to benefit from increased awareness of the impact positive and negative forces can have on mental health and personal growth. Will continue in IOP to promote gains, continue use of healthy coping and prevent decompensation. Narrative Note: []
--- NOTE | 2019-12-31 11:19 | BH.SGPN.GN ---
Behaviors/Verbalizations/Mental Status: [] Eye contact is good. Motor activity is appropriate. Appearance is casual. Speech is Appropriate. Mood is euthymic. Affect congruent. Thoughts are linear and logical. No evidence of psychosis. Client Response/Progress/Benefit: [] Pt receptive of session, provided support to participants throughout the activity, and positive input throughout group discussion. Group processed the activity and identified positive and negative forces impacting ability to complete the challenge. Pt was attentive during psychoeducation, feedback to peers, and appeared to benefit from increased insight on the impact of negative and positive forces on mental wellness. Identified wanting to improve positive relationships as a positive force in her life by more actively engaging with healthy supports and setting boundaries with those who are unhealthy. Progress in pt self-report of improved overall ability to challenge negative thoughts. Pt recommended continued IOP tx to improve skill application, symptom management, and continue to work on challenging thought distortions. Narrative Note: []
--- NOTE | 2020-01-03 09:00 | BH.SGPN.GN ---
This psychotherapy group was provided via telehealth using two-way, real-time interactive telecommunication technology between the patients and the provider. The interactive telecommunication technology included audio and video. The patient was offered telemedicine as an option for care delivery during the COVID-19 pandemic and consented to this option. Patient location: [place] Provider located at [facility] Behaviors/Verbalizations/Mental Status: []Client alert and oriented, casually dressed. Eye contact good. Motor activity appropriate. Speech within normal limits. Affect congruent, mood anxious. Thoughts linear, logical, no signs of hallucinations or delusions. Reviewed client?s symptom tracker, no risk or plan for suicide ideation as of 01/03/20. Client Response/Progress/Benefit: []Client responded well to group, engaged and participated throughout discussion. Client shared her goal has been focusing on the present and focusing on what she can control. Client reported feeling pleased with herself as she voiced out loud to support how proud she was of her accomplishments and progress throughout life and IOP. Client reported experiencing visual hallucinations at night before bed and plans to meet with the psychiatrist on Friday. Client shared using reality grounding and concrete thinking to lessen the anxiety during the hallucinations. Client reported using other healthy coping skills like communication and self-acceptance. Client benefited from group as she opened up to talking about hallucinations with other group members. Client will continue IOP to promote the use of healthy coping skills and improve daily functioning. Narrative Note: []
--- NOTE | 2020-01-03 10:10 | BH.SGPN.GN ---
This psychotherapy group was provided via telehealth using two-way, real-time interactive telecommunication technology between the patients and the provider.?The interactive telecommunication technology included audio and video.? ?The patient was offered telemedicine as an option for care delivery during the COVID-19 pandemic and consented to this option. ?Patient location: [place] ?Provider located at [facility] Behaviors/Verbalizations/Mental Status: []Client alert and oriented, neatly dressed and groomed. Eye contact good. Motor activity appropriate. Speech within normal limits. Affect congruent, mood euthymic. Thoughts linear, logical, no signs of hallucinations or delusions. Client Response/Progress/Benefit: []Client was an engaged participant AEB client providing input throughout discussion and appeared to listen attentively to others. Client connected with the topic of obstacles and solutions and worked with group to identify common obstacles that keep people stuck. Client shared current reality as feeling hopeless and frustrated due to the numerous steps client still has to take to reach her goals. Client's realistic, desired reality is to adjust her goals and expectations to be more realistic. Group discussed common barriers that keep people stuck to include lack of energy, no coping skills, and feeling defeated. Benefited from group as client was able to identify current and desired mental health state and increase awareness of how barriers can impact progress. Client to continue IOP tx to reduce negative thinking, improve mood stability, and increase consistency of coping skills. Narrative Note: []
--- NOTE | 2020-01-03 11:15 | BH.SGPN.GN ---
This psychotherapy group was provided via telehealth using two-way, real-time interactive telecommunication technology between the patients and the provider. The interactive telecommunication technology included audio and video. The patient was offered telemedicine as an option for care delivery during the COVID-19 pandemic and consented to this option. Patient location: [place] Provider located at [facility] Behaviors/Verbalizations/Mental Status: []Client alert and oriented, casually dressed and appropriately groomed. Eye contact fair. Motor activity appropriate. Speech within normal limits. Affect congruent, mood euthymic, slightly anxious. Thoughts linear, logical, no signs of hallucinations or delusions. Client Response/Progress/Benefit: []Client was an engaged participant AEB client providing input at times during discussion and appeared to listen attentively to others. Engaged during activity and provided ideas on how to cope with internal barriers that keep clients stuck from moving towards goals. Barriers identified by client were: not using coping skills, not reaching out to supports, hopelessness, anxiety of future, and imposter syndrome. Group helped identify strategies to combat barriers identified by group members. Client reported will work on anxiety about the future by focusing on taking one day at a time and reminding herself what is in her control. Seemed to benefit from group by identifying obstacles and solutions to desired reality. Will continue IOP tx to continue use of healthy coping, decrease intrusive thoughts and prevent decompensation. Narrative Note: []
--- NOTE | 2020-01-04 09:01 | BH.SGPN.GN ---
Behaviors/Verbalizations/Mental Status: []Client alert and oriented, casually dressed and groomed. Eye contact good. Motor activity appropriate. Speech within normal limits. Affect congruent, mood anxious, dysthymic. Thoughts linear, logical, no signs of hallucinations or delusions. Reviewed client?s symptom tracker, no risk for suicidal ideation noted as of 01/04/20. Client Response/Progress/Benefit: []Client receptive to session, engaged in discussion and provided supportive feedback throughout. Client reports feeling anxious but content this morning. Attributes current emotions to having a positive weekend in which she had been able to reflect upon several areas of progress but continues to feel anxious regarding navigating her relationships with supports. Discussed current stressor as continued difficulties in knowing what type of boundaries to set with a support that she is unsure of whether they are healthy for her mental health or not. Receptive of and appeared to benefit from supportive feedback provided by group. Discussed current positives as not allowing this stressor to cloud her judgement of other friends, as well as taking time to continue giving herself credit for current areas of progress. Progress noted in pt self-report of improved anxiety management and reduced depressive sx, though continues to struggle with consistency and application of thought challenge skills to better aid pt in combating reports of ongoing intrusive thoughts. Will continue IOP tx to prevent decompensation, continue to promote mood stability, and further promote thought challenging skill application. Narrative Note: []
--- NOTE | 2020-01-04 11:19 | BH.SGPN.GN ---
This psychotherapy group was provided via telehealth using two-way, real-time interactive telecommunication technology between the patients and the provider.?The interactive telecommunication technology included audio and video.? ?The patient was offered telemedicine as an option for care delivery during the COVID-19 pandemic and consented to this option. ?Patient location: [place] ?Provider located at [facility] Behaviors/Verbalizations/Mental Status: []Client alert and oriented, neatly dressed and groomed. Eye contact good. Motor activity appropriate. Speech within normal limits. Affect constricted, mood anxious and euthymic. Client Response/Progress/Benefit: []Client responded well to session, connecting with peers and receptive to supportive statements. Client engaged in the boundary self-assessment activity and attentive during psychoeducation on the different boundary styles. Client reported she used to have ?very porous? boundaries as client struggled to say no to people and responsibilities. Client shared she now recognizes this is unhealthy and made client feel overwhelmed and burnout. Client stated she recently moved towards more flexible boundaries which has benefit client. Client participated in brainstorming strategies to improve boundary setting and reports wanting to work on reflecting on realistic expectations for herself which will help client set healthy boundaries. Progress noted in client?s report of reduced isolation, but client continues to struggle with procrastination at times. Will continue IOP tx to reduce symptoms further and improve daily functioning. Narrative Note: []
--- NOTE | 2020-01-05 09:02 | BH.SGPN.GN ---
This psychotherapy group was provided via telehealth using two-way, real-time interactive telecommunication technology between the patients and the provider.?The interactive telecommunication technology included audio and video.? ?The patient was offered telemedicine as an option for care delivery during the COVID-19 pandemic and consented to this option. ?Patient location: [place] ?Provider located at [facility] Behaviors/Verbalizations/Mental Status: []Client alert and oriented, neatly dressed and groomed. Eye contact fair. Motor activity appropriate. Speech within normal limits. Affect constricted, mood dysthymic. Thoughts linear, logical, no signs of hallucinations or delusions. Reviewed client?s symptom tracker, no risk for suicidal ideation, plan, or intent as of 01/05/20. Client Response/Progress/Benefit: []Client responded well to session, attentive and providing supportive statements. Client reports feeling down this morning and shared yesterday was a challenging mental health day. Client stated feeling low and depressed yesterday but did not know the trigger. Client shared this caused client to have numerous cognitive distortions such as see I knew the other shoe would drop. Client stated today she is trying to combat those thoughts and reach out to supports. Client recognizes the benefits of opposite action to prevent the continuation of the depressive cycle. Appeared to benefit from practicing self-compassion in the moment. Will continue IOP tx to prevent further decompensation, promote the use of healthy coping skills, and reduce distortions. Narrative Note: []
--- NOTE | 2020-01-05 11:20 | BH.SGPN.GN ---
Behaviors/Verbalizations/Mental Status: [] Client alert and oriented, casually dressed and groomed. Eye contact good. Motor activity appropriate, at times appearing restless AEB walking around throughout group. Speech within normal limits. Affect congruent, mood dysthymic. Thoughts linear, logical, no signs of hallucinations or delusions Client Response/Progress/Benefit: []Client responded well to session, actively listening and taking notes throughout. Client actively listening, provided input, and taking notes as the group discussed the different categories of coping skills which included distraction, emotional release, grounding, self-love, and thought challenging. Appeared to connect with and provided examples for each category and wrote down several examples shared by fellow participants. Expressed that she has been working to build up skills in a variety of these categories. Client participated in creating a coping skills ?menu? for the five categories of coping skills. Client's coping skill menu included: music, 5-senses, deep breathing, gratitude exercises, and reframing. Shared wanting to focus on more active application of healthy self-love skills by taking more time to practice using positive affirmations towards herself. Client progress remains variable as client struggles with consistent application of thought challenge skills for addressing her intrusive thought patterns which continues to reinforce depressive thought patterns. Appeared to benefit from increasing repertoire of healthy coping skills. Will continue tx to further improve mood stability, reduce depression and anxiety, and prevent decompensation. Narrative Note: []
--- NOTE | 2020-01-05 12:14 | PCM.BH.PN ---
Progress Note Progress Note: History of Present Illness/Interim History: [] Patient is a 30-year-old single -[place] female who is seen in follow-up at the [facility] behavioral health IOP program. I last saw the patient 3 weeks ago. Patient states that she is enjoying the IOP program and feels she is learning valuable skills to help her in her daily life. Her mood is still depressed but much less depressed than 3 weeks ago. Her sleep is good and she is getting about 8 hours a night. Her auditory hallucinations are now very very decreased and she has a month much less often and is able to ignore them. She still is having occasional visual hallucinations which happen right after she wakes up from sleep. She is not having any more passive thoughts that she would not care if she . She denies suicidal ideation and homicidal ideation. She feels that she is still a little paranoid and feels that people that are near her or possibly saying negative things about her. This is about the same as it was before. In addition she has occasional intrusive, obsessive thoughts that like if she walks by razor blade that maybe she should swallow the razor blade and these are not that much better yet. She denies any rituals with her obsessions. Current Psychiatric Medications: [] Her Prozac was increased to 60 mg p.o. daily 2 weeks ago. Her Seroquel was increased to 300 mg at bedtime about 2 weeks ago. She is seeing her outpatient provider later today. Mental Status Examination: [] Patient is seen by telehealth and is casually dressed and groomed with good hygiene. She appears normal for stated age. She has no psychomotor agitation or retardation. She is cooperative and pleasant during the interview. Eye contact is fair by telehealth and more difficult to flight deck officer. Her speech is normal rate and rhythm and fluent with no pressure. Thought processes goal-directed and organized. Mood is depressed and affect is constricted to normal. Thought content: There is evidence of occasional auditory hallucinations but these have almost disappeared. She still has hypnopompic hallucinations that are visual in nature. She still has some mild paranoia that people might be talking about her. There is no evidence of suicidal or homicidal ideation. Reality testing is intact. Judgment is intact. Insight: Improving. Impulsivity: Low to moderate. Diagnoses: [] Hodges I: [] Major depressive disorder, recurrent, severe, with psychotic features; generalized anxiety disorder; OCD Hodges II: [] Deferred Hodges III: [] Migraine headaches Hodges IV:[]] Work and job issues Plan: [] Patient will continue the IOP program at [facility] as the structure, support, education, individual and group therapy will hopefully prevent worsening of the patient's symptoms which might require hospitalization. She felt safe during the interview and if it anytime she does not feel safe she will let us know or go to the emergency room. The risks, options, possible side effects and complications of the medications were again discussed with the patient and she understands and accepts these. No medication changes were made at this time as her outpatient provider recently changed them. She will continue to follow-up with her outpatient psychiatric and medical providers. I will see her in follow-up at the [facility] center.
--- NOTE | 2020-01-06 09:00 | BH.SGPN.GN ---
This psychotherapy group was provided via telehealth using two-way, real-time interactive telecommunication technology between the patients and the provider. The interactive telecommunication technology included audio and video. The patient was offered telemedicine as an option for care delivery during the COVID-19 pandemic and consented to this option. Patient location: [place] Provider located at [facility] Behaviors/Verbalizations/Mental Status: []Client alert and oriented, casual dress, hygiene tended to. Eye contact fair. Motor activity appropriate. Speech within normal limits. Affect constricted, mood dysthymic. Thoughts linear, logical, no signs of hallucinations or delusions. Reviewed client?s symptom tracker, pt denies current suicidal thoughts or intention to date. Client Response/Progress/Benefit: []Patient responded well to session as evidenced by her sharing thoughts and feelings and appeared to listen attentively to others. Patient reported yesterday was rough for her. Patient explained that she overslept and missed her psychiatrist appointment. Patient reported she made many negative comments towards herself after missing the appointment because she felt bad. Patient stated the thoughts spiraled to having her think I have a bad person. Patient stated typically when there is a stressful situation she will go to her unhealthy coping skill of sleeping. Patient stated this time she utilized her healthy support who helped her get out of the house and go for a walk. Patient reported changing her environment did help decrease her anxiety and negative thoughts. Progress noted with patient having increased awareness that she was spiraling and asking for help from her support. Patient to continue IOP level of care to increase healthy coping, challenge distorted thoughts and prevent decompensation. Narrative Note: []
--- NOTE | 2020-01-06 10:10 | BH.SGPN.GN ---
This psychotherapy group was provided via telehealth using two-way, real-time interactive telecommunication technology between the patients and the provider. The interactive telecommunication technology included audio and video. The patient was offered telemedicine as an option for care delivery during the COVID-19 pandemic and consented to this option. Patient location: [place] Provider located at [facility] Behaviors/Verbalizations/Mental Status: []Client alert and oriented, casually dressed and groomed. Eye contact good. Motor activity appropriate. Speech within normal limits. Affect congruent, mood anxious. Thoughts linear, logical, no signs of hallucinations or delusions. Client Response/Progress/Benefit: []Client was an active participant AEB providing input during discussion and listening attentively to others. Contributed to discussion of the quote and stated ?uncomfortable feelings take us out of our normal routine.? Client defined anxiety as ?the fear of the future/unknown.? Client connected with discussion on the difference between ?normal? anxiety and when anxiety becomes problematic. Client shared that anxiety becomes harmful when it ?interferes with daily functioning.? Gained awareness of personal physical symptoms of anxiety which included: headache, dizziness, decreased sleep, and nausea. Client also identified catastrophizing as her common cognitive symptom when feeling anxious. Client benefited from gaining insight into how physical symptoms, anxious thoughts, and safety behaviors are linked and have an impact on one another when anxious. Will continue IOP to increase application of healthy coping skills, challenge distorted thoughts, and improve daily functioning. Narrative Note: []
--- NOTE | 2020-01-06 11:12 | BH.SGPN.GN ---
This psychotherapy group was provided via telehealth using two-way, real-time interactive telecommunication technology between the patients and the provider.?The interactive telecommunication technology included audio and video.? ?The patient was offered telemedicine as an option for care delivery during the COVID-19 pandemic and consented to this option. ?Patient location: [place] ?Provider located at [facility] Behaviors/Verbalizations/Mental Status: []Client alert and oriented, neatly dressed and groomed. Eye contact good. Motor activity appropriate. Speech within normal limits. Affect congruent, mood anxious. Thoughts linear, logical, no signs of hallucinations or delusions. Client Response/Progress/Benefit: []Client was an active participant in group discussion and provided insight on group topic. Attentive during psychoeducation on mindfulness coping skills and their impact on mental health wellness. Practiced 5-senses, guided imagery, and PMR with group. Client was able to identify self-soothing and mind-based coping skills client wants to incorporate into current coping skill practice. The skills client chose to practice singing/dancing and guided meditation. Client reports music used to be a big part of client?s life. Appeared to benefit from practicing in the moment coping skills. Progress noted in client?s report of reaching out to supports, but client continues to struggle with following through with behavioral activation goals. Will continue IOP tx to promote use of healthy coping skills and improve mood stability. Narrative Note: []
--- NOTE | 2020-01-06 15:08 | BH.MDN ---
Multi-Disciplinary Note - Note 30-min Individual Time Started:: 11:00 Date: 01/06/20 Time Stopped:: 11:27
== END 2020-01-08 23:59 ==
LOC: BHIOP 14:00
PROVIDERS: Referring Provider Psychiatry & Neurology Psychiatry; Visit Provider Psychiatry & Neurology Psychiatry
DX: F33.3 Major depressive disorder, recurrent, severe with psychotic symptoms (principal); F41.8 Other specified anxiety disorders; F42.9 Obsessive-compulsive disorder, unspecified; Z79.899 Other long term (current) drug therapy
CPT/HCPCS: H0035; 90832; 90834; 90837; 90853

== ENCOUNTER 2020-01-11 09:00 | Outpatient (RCR) | payer OTHER, SELFPAY ==
--- NOTE | 2020-01-11 09:05 | BH.SGPN.GN ---
This psychotherapy group was provided via telehealth using two-way, real-time interactive telecommunication technology between the patients and the provider.?The interactive telecommunication technology included audio and video.? ?The patient was offered telemedicine as an option for care delivery during the COVID-19 pandemic and consented to this option. ?Patient location: [place] ?Provider located at [facility] Behaviors/Verbalizations/Mental Status: []Client alert and oriented, neatly dressed and groomed. Eye contact fair. Motor activity appropriate. Speech within normal limits. Affect constricted, mood dysthymic. Thoughts linear, logical, no signs of hallucinations or delusions. Reviewed client?s symptom tracker, no risk for suicidal ideation, plan, or intent as of 01/11/20. Client Response/Progress/Benefit: []Client responded well to session, providing feedback. 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 Client stated she has been attempting to cope with this stressor by using self-care, reaching out to supports, and opposite action. Client reports ongoing ruminations about her stressor and shared it didn't go like I had hoped. Client received feedback from the group on how to practice self-compassion about the situation. Appeared to benefit from group support. Will continue IOP tx as client has shown progress with using coping skills, but she continues to struggle with challenging distortions that reinforce anxiety and depression. Narrative Note: []
--- NOTE | 2020-01-11 11:19 | BH.SGPN.GN ---
This psychotherapy group was provided via telehealth using two-way, real-time interactive telecommunication technology between the patients and the provider. The interactive telecommunication technology included audio and video. The patient was offered telemedicine as an option for care delivery during the COVID-19 pandemic and consented to this option. Patient location: [place] Provider located at [facility] Behaviors/Verbalizations/Mental Status: []Client alert and oriented, casual dress, hygiene tended to. Eye contact good. Motor activity appropriate. speech and tone WNL. Affect constricted. mood euthymic. Thoughts linear, logical, no signs of hallucinations or delusions. Client Response/Progress/Benefit: []Client engaged in session AEB listening to and providing input throughout discussion as well as taking notes. Client identified avoidance, not asking for help/reaching out to supports, unhealthy distraction, and negative/distorted thoughts are behaviors she engages in that keep her stuck from moving forward. Client attentive during psychoeducation about problem solving protocol and actively provided input throughout. Client did well to work with the group to brainstorm strategies to promote making progress towards their desired chapter. Identified wanting to work on addressing current barrier of not reaching out to supports which reinforces anxiety and depression, as well as prevents her from getting her needs met. Shared one thing she can do to move forward is to begin increasing her own emotional awareness and more regularly check-in with herself in order to better be able to communicate her mental health needs with supports. Appeared to benefit from increased insight regarding her current ?Chapter? in life and reviewing strategies for promoting continued progress and prevent regression. Progress continues to be impacted by client ongoing difficulties with active applications of skills learned in group outside the tx environment. Will continue IOP tx to prevent decompensation, challenge distorted thoughts and increase healthy coping. Narrative Note: []
--- NOTE | 2020-01-13 09:00 | BH.SGPN.GN ---
This psychotherapy group was provided via telehealth using two-way, real-time interactive telecommunication technology between the patients and the provider. The interactive telecommunication technology included audio and video. The patient was offered telemedicine as an option for care delivery during the COVID-19 pandemic and consented to this option. Patient location: [place] Provider located at [facility] Behaviors/Verbalizations/Mental Status: []Client alert and oriented, casually dressed. Eye contact good. Motor activity appropriate. Speech within normal limits. Affect congruent, mood anxious. Thoughts linear, logical, no signs of hallucinations or delusions. Reviewed client?s symptom tracker, no risk or plan for suicide ideation as of 01/13/20. Client Response/Progress/Benefit: []Client responded well to group, engaged and participated throughout discussion. Client reported feeling ?hopeful? 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 Client stated school and her relationship has been a stressor but working towards her goal of being patient with herself by using healthy coping skills like mindfulness, negative and positive thoughts, breathing, communicating, self-care, and opposite action. Progress noted as client identified a trigger as ?having or not having control of a situation.? Client has increased self-awareness and understands the importance of ?stepping away from stressors to collect herself.? Client will continue IOP to improve daily functioning, promote the use of healthy coping skills, and manage MH symptoms. Narrative Note: []
--- NOTE | 2020-01-13 10:10 | BH.SGPN.GN ---
This psychotherapy group was provided via telehealth using two-way, real-time interactive telecommunication technology between the patients and the provider. The interactive telecommunication technology included audio and video. The patient was offered telemedicine as an option for care delivery during the COVID-19 pandemic and consented to this option. Patient location: [place] Provider located at [facility] Behaviors/Verbalizations/Mental Status: []Client alert and oriented, neatly dressed and groomed. Eye contact good. Motor activity appropriate. Speech within normal limits. Affect congruent, mood anxious. Thoughts linear, logical, no signs of hallucinations or delusions. Client Response/Progress/Benefit: []Client was an active participant AEB contributing to discussion and participating in activity. Connected with the topic of pitfalls and helped the group discuss barriers that keep them from choosing a healthier path to mental wellness such as pitfalls. Group worked together to identify examples of personal pitfalls which included; isolation, low self-esteem, wanting to quit, increased negative distortions, increased hopelessness, feeling overwhelmed,increased anxiety and stress, and feeling of burnout. Client shared personal examples of pitfalls such as wanting to quit and increased cognitive negative distortions. Engaged during the activity and took on a leadership role. Client benefited from group as client identified barriers that keep people from completing treatment goals. Client will continue IOP to improve daily functioning and increase the use of healthy coping skills. Narrative Note: []
--- NOTE | 2020-01-13 15:10 | BH.MDN ---
Multi-Disciplinary Note - Note 30-min Individual Time Started:: 11:30 Date: 01/13/20 Eye Contact:: Fair Motor Activity:: Appropriate Appearance:: Casual Speech:: Appropriate Mood:: Euthymic Affect:: Congruent Thoughts:: Linear, Logical, No evidence of hallucinations/delusions noted Time Stopped:: 12:00
--- NOTE | 2020-01-13 15:14 | BH.TPR ---
Treatment Plan Review Date of Treatment Plan Review:: 01/13/20
--- NOTE | 2020-01-14 09:05 | BH.SGPN.GN ---
This psychotherapy group was provided via telehealth using two-way, real-time interactive telecommunication technology between the patients and the provider. The interactive telecommunication technology included audio and video. The patient was offered telemedicine as an option for care delivery during the COVID-19 pandemic and consented to this option. Patient location: [place] Provider located at [facility] Behaviors/Verbalizations/Mental Status: []Client alert and oriented, casual dress, hygiene tended to. Eye contact good. Motor activity appropriate. Speech within normal limits.Affect congruent, mood dysthymic. Thoughts linear, logical, no signs of hallucinations or delusions. Reviewed client?s symptom tracker, pt denies current suicidal thoughts or intention to date. Client Response/Progress/Benefit: []Patient responded well to session as evidenced by listening to others, providing feedback, and sharing thoughts and feelings. Patient stated emotion today as ?hopeful?. She explained that yesterday had been difficult as she received disappointing news that several of her recently scheduled doctor?s appointments had been rescheduled. Noted this as frustrating and that she had initially struggled with negative thoughts as a result. Reports that in the past she would have told herself it?s going to be a bad day and therefore would have avoided doing anything else the remainder of the day. Noted instead going for a walk with her boyfriend and trying to focus on the positives which pt described as personal progress. Noted additionally reaching out to other healthy supports which helped her to better focus on positives as a result. Patient seem to benefit from expressing thoughts and feelings, as well as reflecting upon progress to others. Continues to struggle with thought challenging and applying internal coping skills when faced with external disappointments. Recommended continued IOP treatment to further promote consistent application of skills, continue to work on depression and mood management, as well as prevent decompensation. Narrative Note: []
--- NOTE | 2020-01-14 10:18 | BH.SGPN.GN ---
This psychotherapy group was provided via telehealth using two-way, real-time interactive telecommunication technology between the patients and the provider.?The interactive telecommunication technology included audio and video.? ?The patient was offered telemedicine as an option for care delivery during the COVID-19 pandemic and consented to this option. ?Patient location: [place] ?Provider located at [facility] Behaviors/Verbalizations/Mental Status: []Client alert and oriented, casually dressed and groomed. Eye contact good. Motor activity restless-walking around house. Speech within normal limits. Affect congruent, mood euthymic. Thoughts linear, logical, no signs of hallucinations or delusions. Client Response/Progress/Benefit: []Client active participant as shown by active listening and participating in small group discussion. Client contributed to the discussion of self-care and the consequences of not practicing self-care. Group discussed consequences of not practicing self-care such as: poor physical health, poor work performance, and poor emotional regulation. Client participated in the discussion of the common myths about self-care. Client participated in the discussion on debunking of these myths. Client?s group challenged the myths that self-care means a person is weak and self-care in unnecessary. Client shared that ?society tells you it?s weak because you?re not being productive to someone else.? Client seemed to benefit from increased awareness of the importance of self-care and challenging common myths that prevent practicing self-care. Will continue IOP tx to challenge distortions that reinforce anxiety and to improve daily functioning. Narrative Note: []
--- NOTE | 2020-01-14 11:20 | BH.SGPN.GN ---
This psychotherapy group was provided via telehealth using two-way, real-time interactive telecommunication technology between the patients and the provider. The interactive telecommunication technology included audio and video. The patient was offered telemedicine as an option for care delivery during the COVID-19 pandemic and consented to this option. Patient location: [place] Provider located at [facility] Behaviors/Verbalizations/Mental Status: [] Client alert and oriented, casually dressed, hygiene appeared to be tended to. Eye contact fair. Motor activity appropriate. Speech within normal limits. Affect full, mood euthymic. Thoughts linear, logical, no signs of hallucinations or delusions. Client Response/Progress/Benefit: []Client active participant AEB client providing input during discussions and listened attentively to peers. Participated in some group discussion on the various areas of self-care, benefits, and types of self-care activities for each area. Client completed worksheet in which she identified current self-care practices and what self-care activities she wants to start using. Client reported she will focus on improving her professional self-care because she struggles with having a work-life balance. Client reported she will work on this self-care area by not allowing herself to take work home so she can be more present with her life. Progress noted as client has been able to increase application of healthy coping skills and reports improved mood. Will continue IOP tx to further promote the use of self-care practice, challenged her thought patterns and prevent decompensation. Narrative Note: []
--- NOTE | 2020-01-18 09:02 | BH.SGPN.GN ---
This psychotherapy group was provided via telehealth using two-way, real-time interactive telecommunication technology between the patients and the provider.?The interactive telecommunication technology included audio and video.? ?The patient was offered telemedicine as an option for care delivery during the COVID-19 pandemic and consented to this option. ?Patient location: [place] ?Provider located at [facility] Behaviors/Verbalizations/Mental Status: []Client alert and oriented, neatly dressed and groomed. Eye contact good. Motor activity appropriate. Speech within normal limits. Affect congruent, mood euthymic. Thoughts linear, logical, no signs of hallucinations or delusions. Reviewed client?s symptom tracker, no risk for suicidal ideation, plan, or intent as of 01/18/20. Client Response/Progress/Benefit: []Client responded well to session, engaged throughout. Client reports feeling motivated this morning after having a low motivation day yesterday. Client shared she felt down yesterday due to an ongoing stressor with a professor. Client stated she did have a good weekend thought as client went to a wedding and danced. Client reports plans to be active today and to continue to practice mindfulness to cope with her mental health symptoms. Appeared to benefit from reflecting on use of coping skills this weekend. Will continue IOP tx to promote use of healthy coping skills and to further improve functioning. Narrative Note: []
--- NOTE | 2020-01-19 10:20 | BH.SGPN.GN ---
This psychotherapy group was provided via telehealth using two-way, real-time interactive telecommunication technology between the patients and the provider. The interactive telecommunication technology included audio and video. The patient was offered telemedicine as an option for care delivery during the COVID-19 pandemic and consented to this option. Patient location: [place] Provider located at [facility] Behaviors/Verbalizations/Mental Status: []Client alert and oriented, casually dressed and groomed. Eye contact good. Motor activity appropriate. Speech within normal limits. Affect congruent, mood dysthymic. Thoughts linear, logical, no signs of hallucinations or delusions. Client Response/Progress/Benefit: [] Client active participant in group AEB client providing insight and input on topic, as well as listening attentively to peers. Group worked together to identify barriers to taking action in their lives which included fear of being seen as broken, lack of resources, comfort zone, fear of the unknown, feeling out of control, and self-stigma. Expressed connecting with self-stigma as a personal barrier. Group identified that taking action can help benefit mental health by: helping to better engage in daily living, feeling more ?authentic?, setting a healthy example for others, and improving self-confidence. Client identified personal areas to take back control over in life to include: fear of failure, people pleasing, apathy, lack of motivation, negative thoughts, and emotional instability. Client shared that if she could take control over these things, she would be able to more easily break the depressive cycle and improve overall ability to manage her mental health sx. Benefited from increased awareness of personal areas client wants to improve and benefits to taking action towards mental wellness. Will continue IOP tx to prevent decompensation, continue to promote application of behavior activation skills, reduce depression, and increase use of internal coping skills. Narrative Note: []
--- NOTE | 2020-01-20 09:00 | BH.SGPN.GN ---
This psychotherapy group was provided via telehealth using two-way, real-time interactive telecommunication technology between the patients and the provider. The interactive telecommunication technology included audio and video. The patient was offered telemedicine as an option for care delivery during the COVID-19 pandemic and consented to this option. Patient location: [place] Provider located at [facility] Behaviors/Verbalizations/Mental Status: []Client alert and oriented, casually dressed. Eye contact good. Motor activity appropriate. Speech within normal limits. Affect constricted, mood anxious. Thoughts linear, logical, no signs of hallucinations or delusions. Reviewed client?s symptom tracker, no risk or plan for suicide ideation as of 01/20/20. Client Response/Progress/Benefit: []Client responded well to session, engaged and participated throughout discussion. 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 Client reported feeling ?down, unmotivated, and not wanting to leave her bed.? 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 Therapist and other group members challenged client to reframe her cognitive distortions, but client struggled to reframe. Client shared she will use self-affirmations to remind her of her strengths and how she has been advocating for herself as well as practicing self-care. Client benefited from group as other group members provided positive feedback and encouragement. Progress noted as client recognized her self-awareness and confidence. Client will continue IOP to increase the use of healthy coping skills and improve daily functioning. Narrative Note: []
--- NOTE | 2020-01-20 10:10 | BH.SGPN.GN ---
This psychotherapy group was provided via telehealth using two-way, real-time interactive telecommunication technology between the patients and the provider. The interactive telecommunication technology included audio and video. The patient was offered telemedicine as an option for care delivery during the COVID-19 pandemic and consented to this option. Patient location: [place] Provider located at [facility] Behaviors/Verbalizations/Mental Status: []Client alert and oriented, neatly dressed and groomed. Eye contact good. Motor activity appropriate. Speech within normal limits. Affect full, mood anxious. Thoughts linear, logical, no signs of hallucinations or delusions. Client Response/Progress/Benefit: []Client receptive of session, attentive in discussion and activity. Client discussed the quote and connected with personal and interpersonal consequences of not managing emotions. Client helped group identify barriers that impact one?s ability to communicate when emotions are high. These barriers included; increased panic attacks, negative thoughts, and sensitivity, decreased communication skills, decreased ability to focus. Client shared she often uses things to distract or push her feelings down to stop feeling unwanted emotions. Attentive during psychoeducation on steps to improve emotional regulation. Client shared her benefits of managing emotions included: ?feeling better, better regulating emotions, and preventing burnout and crisis situations.? Client participated in the activity and did well to manage emotions throughout. Client did well to provide verbal directions from another group member. Client benefited from group as she was able to use healthy coping skills to complete the goal of the group activity and recognize personal benefits of regulating emotions. Will continue IOP tx to promote gains and further combat distortions. Narrative Note: []
--- NOTE | 2020-01-20 11:17 | BH.SGPN.GN ---
Behaviors/Verbalizations/Mental Status: []Client alert and oriented, casually dressed and appropriately groomed. Eye contact good. Motor activity appropriate. Speech within normal limits. Affect congruent. mood dysthymic. Thoughts linear, logical, no signs of hallucinations or delusions. Client Response/Progress/Benefit: [] Client engaged in session AEB contributing to discussion, taking notes, and willingness to complete Zones of Regulation worksheet. Attentive and gave input during psychoeducation on 4 zones of regulation. Client able to identify feelings and behaviors she experiences for each zone. Reported that she currently feels she is in the ?green ?baseline? zone but verging on the ?yellow? or warning zone. Group identified coping skills to support themselves in each zone. Client reported she will practice the skills of: actively using mindfulness and grounding skills, specifically the ?5 senses?, as well as beginning a more consistent exercise routine and spending time outdoors with her dog to aid in remaining in the green zone. Benefited from increased education on zones of regulation or stages of alertness for emotions and healthy coping skills to use for each zone. Progress noted in self-report of improved mood, though remains variable as client continues to struggle with consistent mood management when experiencing increased ruminating thoughts. Will continue IOP tx to continue to continue to promote use of healthy coping skills, maintain stability, as well as prevent decompensation. Narrative Note: []
--- NOTE | 2020-01-21 09:00 | BH.SGPN.GN ---
This psychotherapy group was provided via telehealth using two-way, real-time interactive telecommunication technology between the patients and the provider. The interactive telecommunication technology included audio and video. The patient was offered telemedicine as an option for care delivery during the COVID-19 pandemic and consented to this option. Patient location: [place] Provider located at [facility] Behaviors/Verbalizations/Mental Status: []Client alert and oriented, casually dressed. Eye contact good. Motor activity appropriate. Speech within normal limits. Affect full, mood anxious and euthymic. Thoughts linear, logical, no signs of hallucinations or delusions. Reviewed client?s symptom tracker, no risk or plan for suicide ideation as of 01/21/20. Client Response/Progress/Benefit: []Client responded well to session, engaged and participated throughout discussion. Client reported feeling ?hopeful? as client shared she has been working on the goal of self-acceptance and sitting with uncomfortable feelings. Client shared her boyfriend has been her primary support and together have communicated self-affirmations. Client stated she went on a walk and practiced self-care. Client stated her boss messaged her and gave encouragement as client will go back to work on Friday. Client shared that it eased some anxiety about returning to work. Progress noted as client increased self-awareness and was able to regulate emotions. Client will continue IOP to improve daily functioning and increase the use of healthy coping skills. Narrative Note: []
--- NOTE | 2020-01-21 11:15 | BH.SGPN.GN ---
This psychotherapy group was provided via telehealth using two-way, real-time interactive telecommunication technology between the patients and the provider.?The interactive telecommunication technology included audio and video.? ?The patient was offered telemedicine as an option for care delivery during the COVID-19 pandemic and consented to this option. ?Patient location: [place] ?Provider located at [facility] Behaviors/Verbalizations/Mental Status: []Client alert and oriented, neatly dressed and groomed. Eye contact good. Motor activity appropriate. Speech within normal limits. Affect congruent, mood anxious. Thoughts linear, logical, no signs of hallucinations or delusions. Client Response/Progress/Benefit: []Client was engaged throughout AEB contribution to discussion. Client reported her comfort zone is engaging in toxic behaviors such as isolating and not communicating her emotions with supports. Client reports wanting to work on taking on tasks when anxious, verbalizing her emotions to supports, and not allowing intrusive thoughts control her day. Shared small steps she can take to step out of comfort zone as: practicing positive self-talk, opposite action, and thought challenging. Appeared to benefit from psychoeducation and working with the group to brainstorm strategies to promote growth and get out of one?s comfort zone. Client will continue IOP tx to promote the use of healthy coping skills and to further improve daily functioning. Narrative Note: []
--- NOTE | 2020-01-21 14:23 | BH.MDN_ITS ---
Multi-Disciplinary Note - Note 45-min Individual Time Started:: 12:20 Date: 01/21/20 Purpose of session/treatment goals addressed:: Purpose of session was to assess pt's current symptoms and stressors. Other topics included: processing school stressor, review of healthy skills, return to work plan, and increasing awareness of how negative view of self impacts mental health. Eye Contact:: Good Motor Activity:: Appropriate Appearance:: Casual Speech:: Appropriate Mood:: Euthymic Affect:: Full Thoughts:: Linear, Logical, No evidence of hallucinations/delusions noted Staff Interventions:: Therapist used open ended questions to elicit pt's current symptoms and stressors. Reviewed homework and elicited what skills have helped pt over last week. Worked with pt to increase awareness of barriers to opening up to others. Therapist assisted pt with identifying and challenging beliefs that represent distortions of reality and that are destructive to client?s well- being. Therapist provided homework for pt to identify 3-5 positives about herself every night and keep thought log to increase awareness of unhealthy thought patterns. Client Response:: Pt engaged in session AEB pt sharing thougths and feelings throughout session. Pt stated she has moved to an acceptance stage with stressor at school. Reported she recognizes she has done all she can do and accepting the situation is best for her mental health. Pt stated she has had a couple days of feeling down but was able to use opposite action. Pt reported she made herself do chores around the house and go on a walk. Reported these tasks helped her mood. Stated nervous about returning to work. Identified anxious because worried co-workers will be mad at her for being off work. Able to recognize logically this is a distorted thought but states when the negative thoughts hurt a lot she has a hard time challenging. Through further discussion pt became aware a core believe is not feeling good enough. This results in her looking for situatiosn that confirm this belief. Agreeable to complete homework provided by therapist. Risks/Concerns:: denies suicidal ideation, plan or intention. Progress Toward Goals/Plan:: Progress ntoed with pt radically accepting situation at school versus allowing the stressor to impact her mental health. Progress with utilizing skills like opposite action when feeling down. Continues to struggle with intrusive thoughts but has been working with sitting with the uncomfortable thoughts. Continues to struggle with negative thought patterns. Plan is for pt to continue IOP level of care 3 days a week for 2 more weeks. Plan is for pt to seek counseling with a ERP therapist if she doesn't see progress with decreasing intrusive thoughts. Time Stopped:: 13:00
--- NOTE | 2020-01-25 09:03 | BH.SGPN.GN ---
This psychotherapy group was provided via telehealth using two-way, real-time interactive telecommunication technology between the patients and the provider. The interactive telecommunication technology included audio and video. The patient was offered telemedicine as an option for care delivery during the COVID-19 pandemic and consented to this option. Patient location: [place] Provider located at [facility] Behaviors/Verbalizations/Mental Status: []Client alert and oriented, casual dress, hygiene tended to. Eye contact fair. Motor activity appropriate. Speech within normal limits. Affect congruent, mood euthymic. Thoughts linear, logical, no signs of hallucinations or delusions. Reviewed client?s symptom tracker, pt denies current suicidal thoughts or intention to date. Client Response/Progress/Benefit: []Patient responded well to session as evidenced by her listened attentively to others and sharing thoughts and feelings openly. Patient stated overall her weekend was positive because she reached out to friends and also had a chance to talk to her family. Patient reported she did have some moments of feeling down and upset because her family is unwilling to come visit her for the holidays. Patient expressed frustration that her family always expects her to drive to [place] to see them versus them coming to see her. Patient stated she does struggle with rejection and catastrophize the situation. Patient reported her boyfriend was helpful to calm down. Patient reported that at times she has been feeling more lazy but yesterday she used obvious action to complete several tasks in the house and engage in self-care. Patient stated she is feeling nervous about work because having intrusive thoughts that he programming about her. Patient stated overall she is feeling optimistic and happy. Progress noted with patient utilizing healthy coping skills and patient reporting improvement. Patient to continue IOP level of care to maintain gains, assist patient with returning back to work, and prevent decompensation. Narrative Note: []
--- NOTE | 2020-01-25 10:09 | BH.SGPN.GN ---
This psychotherapy group was provided via telehealth using two-way, real-time interactive telecommunication technology between the patients and the provider. The interactive telecommunication technology included audio and video. The patient was offered telemedicine as an option for care delivery during the COVID-19 pandemic and consented to this option. Patient location: [place] Provider located at [facility] Behaviors/Verbalizations/Mental Status: []Client alert and oriented, casually dressed and appropriately groomed. Eye contact good. Motor activity appropriate. Speech within normal limits. Affect congruent, mood euthymic, Thoughts linear, logical, no signs of hallucinations or delusions. Client Response/Progress/Benefit: []Client responded well to session, attentive and contributing throughout. Group discussed benefits of healthy communication on mental health which included: let?s others know what we are feeling, gets our needs met, prevents avoidable problems, improves relationships, and helps establish healthier boundaries. Group additionally discussed potential barriers to communication including: shutting down, passive-aggressive communication, assumptions, being vague, and poor emotional regulation. Remained attentive and provided insight during psychoeducation on the four communication styles. Client self-reports in the past identifying most with the passive and passive-aggressive communication styles. Client shared she has been making more of an effort to be more assertive however as she has seen that passive communication only reinforces self-doubt and anxiety. Discussed struggling at times to do so however as she is still working on overcoming underlying trust issues with herself and her supports. Benefited from increased insight regarding her own communication style and impacts this has on overall mental health. Progress noted in increased insight into how passive communication impacts client?s mental health. Client will continue in IOP to reduce negative thinking that reinforces depressive symptoms and to improve daily functioning. Narrative Note: []
--- NOTE | 2020-01-25 11:11 | BH.SGPN.GN ---
This psychotherapy group was provided via telehealth using two-way, real-time interactive telecommunication technology between the patients and the provider.?The interactive telecommunication technology included audio and video.? ?The patient was offered telemedicine as an option for care delivery during the COVID-19 pandemic and consented to this option. ?Patient location: [place] ?Provider located at [facility] Behaviors/Verbalizations/Mental Status: []Client alert and oriented, neatly dressed and groomed. Eye contact good. Motor activity appropriate. Speech within normal limits. Affect congruent, mood euthymic. Thoughts linear, logical, no signs of hallucinations or delusions. Client Response/Progress/Benefit: []Client responded well to session AEB client listening attentively to others and providing input during small group discussion on the pay offs and costs of the different communication styles. Attentive during psychoeducation on assertiveness strategies to improve communication, and client selected an assertiveness skill to practice. Client selected the skill be assert needs directly and shared ?I?m really good at backing down on how I?m feeling.? Client plans to do this by working on avoiding vague statements and instead using self-assured language. Client seemed to benefit from increasing awareness of healthy strategies to improve communication. Will continue IOP tx to promote gains, improve mood stability, and further improve daily functioning. Narrative Note: []
--- NOTE | 2020-01-26 09:05 | BH.SGPN.GN ---
Behaviors/Verbalizations/Mental Status: [] Eye contact is good. Motor activity is appropriate. Appearance is casual. Speech is Appropriate. Mood is depressed. Affect is flat. Thoughts are linear and logical. No evidence of psychosis. Reviewed daily check in sheet and no reports of suicidal ideations or intent. Client Response/Progress/Benefit: [] Pt participated when prompted. Attentive during group discussions. Emotion for today is anxious. Shared that she has been having increased intrusive thoughts and ruminations as she is scheduled to return to work next week. She verbalized some of her thoughts regarding work, current relationship, and holiday plans with family. Thoughts were along the lines of catastrophizing. Insight that she is doing this and believes that she is getting better at challenging these thoughts and also sitting with her intrusive thoughts. Gave examples of how she was challenging thoughts. Some regression noted per pt. Benefited from group support, encouragement, and feedback. Will continue in IOP to maintain gains and transfer back to work. Narrative Note: [] This psychotherapy group was provided via telehealth using two-way, real-time interactive telecommunication technology between the patients and the provider.?The interactive telecommunication technology included audio and video.? ?The patient was offered telemedicine as an option for care delivery during the COVID-19 pandemic and consented to this option. ?Patient location: [place] ?Provider located at [facility]
--- NOTE | 2020-01-26 10:20 | BH.SGPN.GN ---
This psychotherapy group was provided via telehealth using two-way, real-time interactive telecommunication technology between the patients and the provider.?The interactive telecommunication technology included audio and video.? ?The patient was offered telemedicine as an option for care delivery during the COVID-19 pandemic and consented to this option. ?Patient location: [place] ?Provider located at [facility] Behaviors/Verbalizations/Mental Status: []Client alert and oriented, neatly dressed and groomed. Eye contact good. Motor activity appropriate. Speech within normal limits. Affect congruent, mood euthymic. Thoughts linear, logical, no signs of hallucinations or delusions. Client Response/Progress/Benefit: []Client responded well to session, attentive during discussion and engaged during the activity. Client connected with the quote and stated that she tends to put off difficult things due to anxiety. Group reported even though change can be scary, change can be positive. Worked with the group to identify barriers to making change, which included: fear of failure, uncomfortable emotions, and putting others first. Client reported change only happens outside one?s comfort zone and change can improve self and relationships. Client participated in the activity where they identified and discussed the emotions related to change. Benefited from increased awareness and understanding of emotions, benefits, and barriers related to change. Progress noted as client reports reduced avoidance behaviors. Will continue IOP tx to further improve mood stability and work-related functioning. Narrative Note: []
--- NOTE | 2020-01-28 09:00 | BH.SGPN.GN ---
This psychotherapy group was provided via telehealth using two-way, real-time interactive telecommunication technology between the patients and the provider. The interactive telecommunication technology included audio and video. The patient was offered telemedicine as an option for care delivery during the COVID-19 pandemic and consented to this option. Patient location: [place] Provider located at [facility] Behaviors/Verbalizations/Mental Status: []Client alert and oriented, casually dressed. Eye contact good. Motor activity appropriate. Speech within normal limits. Affect full, mood euthymic. Thoughts linear, logical, no signs of hallucinations or delusions. Reviewed client?s symptom tracker, no risk or plan for suicide ideation as of 01/28/20. Client Response/Progress/Benefit: []Client responded well to session, engaged and participated throughout discussion. Client reported feeling ?happy and hopeful? as she has been reminding herself of her positives and reaching out to supports to avoid isolation. Client shared she is almost finished with school which increases anxiety, but has had a positive outlook and is using healthy coping skills by going on walks and dancing. Reported that once school ends, client will focus on having a healthy work/life balance. Client benefited from group as other group members gave positive encouragement and reported practicing self-care. Client will continue IOP to continue the use of healthy coping skills and improve daily functioning. Narrative Note: []
--- NOTE | 2020-01-28 10:05 | BH.SGPN.GN ---
This psychotherapy group was provided via telehealth using two-way, real-time interactive telecommunication technology between the patients and the provider. The interactive telecommunication technology included audio and video. The patient was offered telemedicine as an option for care delivery during the COVID-19 pandemic and consented to this option. Patient location: [place] Provider located at [facility] Behaviors/Verbalizations/Mental Status: []Client alert and oriented, casual dress, hygiene tended to. Eye contact good. Motor activity appropriate. Speech within normal limits. Affect constricted, mood anxious and euthymic. Thoughts linear, logical, no signs of hallucinations or delusions. Client Response/Progress/Benefit: []Client responded well to session, providing feedback to peers and insight to discussion. Engaged during psychoeducation portion reviewing fixed mindset. Client connected with traits of the fixed mindset and worked with group to identify how a fixed mindset can impact our mental health which included: increased distortions, negative self-talk, ruminations, all or nothing thinking, self-fulfilling prophecies, unchanging mindset, and keeps us from accomplishing tasks/goals. Client reported ?self-doubt, the fear of the unknown, consequences, and all or nothing thinking? were barriers to see change as opportunities. Benefited from group by increasing awareness of how one's mindset impacts mental health. Progress noted AEB client recognized the importance of obtaining a positive mindset and views of changes and opportunities. Client will continue IOP to continue the use of healthy coping skills and improve daily functioning. Narrative Note: []
--- NOTE | 2020-01-28 11:15 | BH.SGPN.GN ---
Behaviors/Verbalizations/Mental Status: []Client alert and oriented, casually dressed and groomed. Eye contact good. Motor activity appropriate. Speech within normal limits. Affect congruent. mood euthymic. Thoughts linear, logical, no signs of hallucinations or delusions. Client Response/Progress/Benefit: []Client actively listening, providing input during discussion, and taking notes throughout. Remained mostly passive throughout, however. Client did well to work with group on identifying characteristics and benefits of adopting a growth mindset. Client provided input during activity in which participants helped reframe example fixed thoughts into growth mindset thoughts. Reports that being able to reframe her own fixed thoughts could continue to help with taking more responsibility for her mental health and reduce ?wallowing?. Client worked to apply skills learned to reframe own personal fixed thoughts. Reframed thought of ?My brain is dumb? with growth mindset thought of ?Even though I feel this way right now, I know that this is just a thought and that doesn?t make it true. I know others have struggled with distorted thoughts too and that doesn?t mean their brains are dumb. I have plenty of coping skills to help myself out?. Benefitted from discussing benefits of growth mindset and brainstorming strategies for prompting a growth-mindset. Client progress noted in client self-report of improved communication, increased use of calming skills, and reduced anxiety. Will continue IOP tx to continue to promote active thought challenging and skill application as well as improve healthy coping repertoire. Narrative Note: []
--- NOTE | 2020-01-28 15:11 | BH.MDN ---
Multi-Disciplinary Note - Note 30-min Individual Time Started:: 10:30 Date: 01/28/20 Time Stopped:: 10:55
--- NOTE | 2020-01-31 09:00 | BH.SGPN.GN ---
This psychotherapy group was provided via telehealth using two-way, real-time interactive telecommunication technology between the patients and the provider. The interactive telecommunication technology included audio and video. The patient was offered telemedicine as an option for care delivery during the COVID-19 pandemic and consented to this option. Patient location: [place] Provider located at [facility] Behaviors/Verbalizations/Mental Status: []Client alert and oriented, casually dressed. Eye contact good. Motor activity appropriate. Speech within normal limits. Affect congruent, mood euthymic and anxious. Thoughts linear, logical, no signs of hallucinations or delusions. Reviewed client?s symptom tracker, no risk or plan for suicide ideation as of 01/31/20. Client Response/Progress/Benefit: []Client responded well to session, engaged and participated throughout discussion. Client reported feeling ?happy? after a positive check-in. Client finished grad school and celebrated by practicing self-care with surrounding herself with supports, dying her hair, and relaxing. Client shared she is going back to work today and reported she will try to not overwhelm and overwork herself by taking on too much. 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 Client noted another stressor as not knowing her plans surrounding Thanksgiving this week. Client benefited from positive feedback on what she could do to decrease her stressors. Progress noted as client is using healthy coping skills and meeting goals. Client will continue IOP to increase daily functioning and decrease MH symptoms. Narrative Note: []
--- NOTE | 2020-01-31 10:13 | BH.SGPN.GN ---
This psychotherapy group was provided via telehealth using two-way, real-time interactive telecommunication technology between the patients and the provider. The interactive telecommunication technology included audio and video. The patient was offered telemedicine as an option for care delivery during the COVID-19 pandemic and consented to this option. Patient location: [place] Provider located at [facility] Behaviors/Verbalizations/Mental Status: []Client alert and oriented, casually dressed and appropriately groomed. Eye contact good. Motor activity appropriate. Speech within normal limits. Affect congruent, mood euthymic. Thoughts linear, logical, no signs of hallucinations or delusions. Client Response/Progress/Benefit: []Client active participant as evidenced by providing input throughout discussion. Client connected with the discussion about how distorted thought patterns can reinforce mental health symptoms and impact relationships. Client noted that she connects with overgeneralizing, mind-reading, and disqualifying the positive. Client gave an example of a distortion she has experienced which was ?if I make a mistake, I assume everyone knows about it.? Client reported distortions often lead to self-criticism and isolation for client. Appeared to benefit from increasing awareness of cognitive distortions and how they can impact emotions and behaviors. Will continue IOP tx to promote gains and further increase mood stability. Narrative Note: []
--- NOTE | 2020-02-02 09:02 | BH.SGPN.GN ---
This psychotherapy group was provided via telehealth using two-way, real-time interactive telecommunication technology between the patients and the provider. The interactive telecommunication technology included audio and video. The patient was offered telemedicine as an option for care delivery during the COVID-19 pandemic and consented to this option. Patient location: [place] Provider located at [facility] Behaviors/Verbalizations/Mental Status: []Client alert and oriented, casual dress, hygiene tended to. Eye contact fair. Motor activity appropriate. Speech within normal limits. Affect congruent, mood euthymic. Thoughts linear, logical, no signs of hallucinations or delusions. Reviewed client?s symptom tracker, pt denies current suicidal thoughts or intention to date. Client Response/Progress/Benefit: []Pt responded well to session AEB pt openly sharing thoughts and feelings and appeared to listen attentively to others. Pt stated she had a positive day yesterday because spent time with her best friend. Pt reported she really enjoyed just enjoying her time with her friend. Pt stated she has returned to work on a reduced schedule and feels very good to be back. Pt reported her co-workers have been very supportive. Pt stated she used her grounding tools to help manage anxiety. Pt reported the most significant progress she notes is having increased awareness of when she is starting to slip into old ways. Pt stated the increased awareness helps her catch herself before she spirals. Pt has made significant progress since starting IOP and is discharging from IOP today. Narrative Note: []
--- NOTE | 2020-02-02 10:15 | BH.SGPN.GN ---
This psychotherapy group was provided via telehealth using two-way, real-time interactive telecommunication technology between the patients and the provider.?The interactive telecommunication technology included audio and video.? ?The patient was offered telemedicine as an option for care delivery during the COVID-19 pandemic and consented to this option. ?Patient location: [place] ?Provider located at [place] Behaviors/Verbalizations/Mental Status: [] Client alert and oriented, casually dressed and groomed. Eye contact good. Motor activity appropriate. Speech within normal limits. Affect congruent, mood euthymic. Thoughts linear, logical, no signs of hallucinations or delusions. Client Response/Progress/Benefit: []Client was an engaged participant AEB client taking notes, providing input, and attentively listening to peers throughout. Client connected with group topic of perspective and the impacts of one?s perspective on mental health. She shared that ?if we go into a situation looking for it to be bad then it is most likely going to be bad, but if we go into it with an open mind we are more likely to have a positive experience?. Client worked with group to identify how negative perspective can impact mental health which included: self-fulfilling prophecy, maintain unhealthy mental health cycles, and lead to more negative thinking.?Client contributed as group discussed ways a positive perspective can impact mental health such as: be more willing to keep trying when faced with setbacks, be more open to new experiences and new relationships, as well as improve self-confidence. Noted that she has been trying to look at things in a more positive perspective in order to ?find potential solutions rather than discredit all possibilities?. Client appeared to benefit from increasing understanding of mental health benefits of a positive perspective and potential consequences to progress when perspective is negative. Progress noted in self-report of improved skill application and reduced sx. Client to discharge from IOP given progress made, recommended continued outpatient counseling to maintain gains and prevent decompensation. Narrative Note: []
--- NOTE | 2020-02-02 15:11 | BH.MDN ---
Multi-Disciplinary Note - Note 30-min Individual Time Started:: 11:30 Date: 02/02/20 Time Stopped:: 11:52
--- NOTE | 2020-02-02 15:12 | BH.DS ---
Discharge Summary - Demographics Date of Admission:: 12/15/19 Discharge Date: 02/02/20 Presenting Problems at Admission:: Patient referred to the [facility] behavioral health IOP program by her psychiatrist due to her increasing symptoms of depression and anxiety and her inability to function at work due to these worsening symptoms. Mental health symptoms impacting ability to function at work and went on FMLA. Endorsed at admission depressed mood, hopelessness, anhedonia, worthlessness, lack of motivation, low energy, decreased concentration and passive thoughts of . Endorsed auditory hallucination and paranoia but less severe due to taking medications. Pt reported experiencing intrusive harm thoughts but stated she would never act upon them. Discharge Diagnoses:: F33.3 Major depressive disorder, recurrent, severe, with psychotic features; generalized anxiety disorder; OCD Reason for Discharge:: Pt has reported significant decrease in mental health symptoms since starting IOP and has been able to successfully return back to work. Pt no longer meets criteria for higher level of care. - Treatment Progress During Treatment & Response: Progress noted AEB pt's discharge scores on the DSM-5 cross-cutting measures. Pt's scores indicate a 75% decrease in depressive symptoms and a 62.5% decrease in anxious symptoms. Pt had slight decrease in intrusive thoughts but has agreed seeking counseling from someone trained in ERP would be best. Pt had an overall symptom reduction from admission to discharge of 69%. Pt responed well to sessions AEB consistent attendance, engagement in discussions and applying skills outside treatment environment. Issues Still to be Addressed:: Pt could benefit from seeing a therapist that has training in Exposure Response Prevention to help with pt's intrusive harm thoughts. Pt also could benefit from continued focus on maintaining daily self-care, challenging distorted thoughts, asking for help and consistnet use of healthy coping skills. Discharge Recommendations/Instructions:: Pt is to continue counseling with outpatient therapist at [facility] and continued medication through [id number]. Discharge Handout: Complete Discharge Handout with client on aftercare options and continuity of care.
== END 2020-02-07 23:59 ==
LOC: BHIOP 09:00
PROVIDERS: Referring Provider Psychiatry & Neurology Psychiatry; Visit Provider Psychiatry & Neurology Psychiatry
DX: F33.3 Major depressive disorder, recurrent, severe with psychotic symptoms (principal); F41.9 Anxiety disorder, unspecified; F42.9 Obsessive-compulsive disorder, unspecified
CPT/HCPCS: H0035; 90832; 90834; 90853